=== PATIENT | male | born 1940 | race Caucasian/White ===

== ENCOUNTER 2018-08-04 15:09 | Inpatient (IN) | payer MEDICARE ==
[2018-08-04] MEDS ORDERED: Metoprolol Tartrate 5 MG/5 ML SDV IVPUSH ONE (15:18)
[2018-08-04] MEDS ORDERED: Metoprolol Tartrate 5 MG/5 ML SDV ONE (15:19)
--- NOTE | 2018-08-04 15:42 | EDM.PDOC ---
ED HPI GENERAL MEDICAL PROBLEM - General Stated Complaint: WEAKNESS/LETHARGY/HX OF HEART PROBLEMS Time Seen by Provider: 08/04/18 15:18 Source of Information: Reports: Patient, Other (2 friends of the patient) History Limitations: Reports: Altered Mental Status (Confused) - History of Present Illness INITIAL COMMENTS - FREE TEXT/NARRATIVE: A Code Blue was called for this patient after he developed nonsustained ventricular tachycardia on the monitor while his vitals were being checked. The patient a palpable pulse, even with the ventricular tachycardia. Minimal history is available. The patient states that he is confused, and is unable to provide much meaningful history. According to 2 of the patient's friends, who brought the patient to the ED, the patient is visiting from [place]. He complained of feeling tired and weak this morning. He was able to ascend approximately 10 steps to have breakfast, then went back downstairs to go lie down. He was then unable to get up and walk on his own, due to extreme weakness. There is no history of recent complaint of chest pain or dyspnea, fever, vomiting, or diarrhea. Reviewing the patient's medication list, the patient likely has hypertension, dyslipidemia, BPH, diabetes and osteoarthritis. According to the patient's friends, he wears nightly CPAP, suggesting obstructive sleep apnea. Further history was provided by the patient's , who was able to be contacted. The patient has a history of lacunar infarcts, for which he takes Coumadin. He also has a history of GERD, status post a Gabbie fundoplication. The patient has had several episodes of nonsustained ventricular tachycardia. I ordered that an IV be placed and that he receive 5 mg IV Lopressor STAT. - Related Data Allergies Allergy/AdvReac Type Severity Reaction Status Date / Time bee pollen Allergy Swelling Verified 08/04/18 17:18 Home Meds: Home Meds Cholecalciferol (Vitamin D3) [Vitamin D3] 5,000 intnl unit PO BEDTIME 08/04/18 [ History] Comprehensive Gut Health 1 tab PO MOTH 08/04/18 [History] Fish Oil/DHA/EPA [Fish Oil 1,200 MG] 1,200 mg PO BID 08/04/18 [History] Glucosamine HCl [Glucosamine] 1,500 mg PO DAILY 08/04/18 [History] Lisinopril/Hydrochlorothiazide [Lisinopril-Hctz 20-12.5 mg Tab] 12.5 - 20 mg PO DAILY 08/04/18 [History] Methylsulfonylmethane [MSM] 1,500 mg PO DAILY 08/04/18 [History] Multivits,Ca,Min/Iron/FA/Lycop [Centrum Men's Tablet] 1 tab PO BEDTIME 08/04/18 [History] Tamsulosin [Flomax] 0.4 mg PO DAILY 08/04/18 [History] Warfarin [Coumadin] 2.5 mg PO SUMOTUWEFRSA 08/04/18 [History] Warfarin [Coumadin] 5 mg PO TH 08/04/18 [History] amLODIPine Besylate [Amlodipine Besylate] 10 mg PO DAILY 08/04/18 [History] atorvaSTATin Calcium [Atorvastatin Calcium] 80 mg PO BEDTIME 08/04/18 [History] metFORMIN [Glucophage] 500 mg PO BID 08/04/18 [History] Past Medical History Cardiovascular History: Reports: High Cholesterol, Hypertension Respiratory History: Reports: Sleep Apnea (nightly CPAP) Gastrointestinal History: Reports: GERD Genitourinary History: Reports: BPH Musculoskeletal History: Reports: Osteoarthritis Neurological History: Reports: Other (See Below) (Lacunar infarcts) Endocrine/Metabolic History: Reports: Diabetes, Type II Hematologic History: Reports: Anticoagulation Therapy (coumadin) - Past Surgical History GI Surgical History: Reports: Gabbie Fundoplication ED ROS GENERAL - Review of Systems Review Of Systems: Unable To Obtain ED EXAM, GENERAL - Physical Exam Exam: See Below Exam Limited By: No Limitations General Appearance: WD/WN, No Apparent Distress Eye Exam: Bilateral Eye: EOMI, Normal Inspection Ears: Normal External Exam Nose: Normal Inspection Throat/Mouth: Normal Inspection, Normal Lips, Normal Voice, No Airway Compromise Head: Atraumatic, Normocephalic Neck: Normal Inspection Respiratory/Chest: No Respiratory Distress, Lungs Clear, Normal Breath Sounds, No Accessory Muscle Use Cardiovascular: Normal Peripheral Pulses, Regular Rate, Rhythm, No Edema, No Gallop, No JVD, No Murmur, No Rub, Other (Several episodes of nonsustained ventricular tachycardia - pulse WAS palpable during these episodes) Peripheral Pulses: 4+: Radial (L), Radial (R) GI/Abdominal: Normal Bowel Sounds, Soft, Non-Tender, No Organomegaly, No Distention, No Abnormal Bruit, No Mass, Other (Obese) (Male) Exam: Deferred Rectal (Males) Exam: Deferred Back Exam: Normal Inspection, Full Range of Motion, NT Extremities: Normal Inspection Neurological: No Motor/Sensory Deficits, Confused Skin Exam: Warm, Dry, Intact, Normal Color, No Rash EKG INTERPRETATION EKG Date: 08/04/18 Time: 15:22 Rhythm: NSR (with an episode of non-sustained ventricular tachycardia) Rate (Beats/Min): 102 Benezett: LAD-Left Benezett Deviation (2 LAFB) P-Wave: Present QRS: Normal ST-T: Normal Comparison: NA - No Prior EKG Course - Vital Signs Last Recorded V/S: Last Vital Signs Temp 37.6 C 08/04/18 18:00 Pulse 94 08/04/18 18:00 Resp 22 H 08/04/18 18:00 BP 74/51 L 08/04/18 18:00 Pulse Ox 89 L 08/04/18 18:00 - Orders/Labs/Meds Orders: Active Orders 24 hr Category Date Time Status Admission Status [Patient Status] [ADT] Routine ADT 08/04/18 19:46 Ordered EKG Documentation Completion [RC] STAT Care 08/04/18 15:23 Active Insert Briscoe Catheter [Insert Urinary Catheter] [OM.PC] Care 08/04/18 16:30 Ordered Stat Urinary Catheter Assessment [RC] ASDIRECTED Care 08/04/18 16:30 Active CULTURE BLOOD [BC] Stat Lab 08/04/18 15:43 Received CULTURE BLOOD [BC] Stat Lab 08/04/18 15:54 Received LACTIC ACID [CHEM] Timed Lab 08/04/18 19:50 Ordered Phenylephrine [Mayo-Synephrine] 10 mg Med 08/04/18 18:15 Active Sodium Chloride 0.9% [Normal Saline] 99 ml IV TITRATE Sodium Chloride 0.9% [Normal Saline] 1,000 ml Med 08/04/18 18:59 Active IV ONETIME Blood Culture x2 Reflex Set [OM.PC] Stat Oth 08/04/18 15:23 Ordered Medication Orders Phenylephrine HCl 10 mg/ (Sodium Chloride) 100 mls @ 60 mls/hr IV TITRATE HARRIETT; Protocol Sodium Chloride (Normal Saline) 1,000 mls @ 500 mls/hr IV ONETIME ONE Stop: 08/04/18 20:58 Labs: Laboratory Tests 05/01/1308/04/18 08/04/18 Range/Units 15:20 15:20 15:20 WBC 18.41 H (4.23-9.07) K/mm3 RBC 5.07 (4.63-6.08) M/mm3 Hgb 14.6 (13.7-17.5) gm/L Hct 44.8 (40.1-51.0) % MCV 88.4 (79.0-92.2) fl MCH 28.8 (25.7-32.2) pg MCHC 32.6 (32.2-35.5) g/dl RDW Std Deviation 44.8 H (35.1-43.9) fL Plt Count 185 (163-337) K/mm3 MPV 10.6 (9.4-12.3) fl Neutrophils % (Manual) 79 H (40-60) % Band Neutrophils % 4 (0-10) % Lymphocytes % (Manual) 6 L (20-40) % Atypical Lymphs % 4 % Monocytes % (Manual) 7 (2-10) % Eosinophils % (Manual) 0 L (0.8-7.0) % Basophils % (Manual) 0 L (0.2-1.2) Platelet Estimate Adequate Plt Morphology Comment See note RBC Morph Comment Normal PT 18.1 H (9.5-12.1) SECONDS INR 1.68 APTT 36 H (24-31) SECONDS D-Dimer, Quantitative 0.47 (0.19-0.50) mg/L Puncture Site ABG pH (7.35-7.45) ABG pCO2 (35.0-45.0) mmHg ABG pO2 (80.0-100.0) mmHg ABG HCO3 (22.0-26.0) meq/L ABG O2 Saturation (96.0-97.0) % ABG Base Excess (-2-2.0) Jair Test A-a Gradient mmHg O2 Delivery Device Oxygen Flow Rate Sodium 139 (136-145) mEq/L Potassium 3.4 L (3.5-5.1) mEq/L Chloride 102 (98-107) mEq/L Carbon Dioxide 26 (21-32) mEq/L Anion Gap 14.4 (5-15) BUN 17 (7-18) mg/dL Creatinine 1.4 H (0.7-1.3) mg/dL Est Cr Clr Drug Dosing TNP Estimated GFR (MDRD) 49 (>60) mL/min BUN/Creatinine Ratio 12.1 L (14-18) Glucose 191 H (83-115) mg/dL Lactic Acid (0.4-2.0) mmol/L Calcium 9.5 (8.5-10.1) mg/dL Magnesium 1.5 L (1.8-2.4) mg/dl Total Bilirubin 0.8 (0.2-1.0) mg/dL AST 14 L (15-37) U/L ALT 23 (16-63) U/L Alkaline Phosphatase 63 (46-116) U/L Troponin I 0.040 (0.00-0.056) ng/mL NT-Pro-B Natriuret Pep (0-450) pg/mL Total Protein 7.7 (6.4-8.2) g/dl Albumin 3.2 L (3.4-5.0) g/dl Globulin 4.5 gm/dL Albumin/Globulin Ratio 0.7 L (1-2) Urine Color (Yellow) Urine Appearance (Clear) Urine pH (5.0-8.0) Ur Specific Anderson (1.005-1.030) Urine Protein (Negative) Urine Glucose (UA) (Negative) Urine Ketones (Negative) Urine Occult Blood (Negative) Urine Nitrite (Negative) Urine Bilirubin (Negative) Urine Urobilinogen (0.2-1.0) Ur Leukocyte Esterase (Negative) Urine RBC (0-5) /hpf Urine WBC (0-5) /hpf Ur Epithelial Cells (0-5) /hpf Urine Bacteria (FEW) /hpf Urine Mucus (FEW) /hpf 08/04/18 08/04/18 08/04/18 Range/Units 15:20 15:35 15:54 WBC (4.23-9.07) K/mm3 RBC (4.63-6.08) M/mm3 Hgb (13.7-17.5) gm/L Hct (40.1-51.0) % MCV (79.0-92.2) fl MCH (25.7-32.2) pg MCHC (32.2-35.5) g/dl RDW Std Deviation (35.1-43.9) fL Plt Count (163-337) K/mm3 MPV (9.4-12.3) fl Neutrophils % (Manual) (40-60) % Band Neutrophils % (0-10) % Lymphocytes % (Manual) (20-40) % Atypical Lymphs % % Monocytes % (Manual) (2-10) % Eosinophils % (Manual) (0.8-7.0) % Basophils % (Manual) (0.2-1.2) Platelet Estimate Plt Morphology Comment RBC Morph Comment PT (9.5-12.1) SECONDS INR APTT (24-31) SECONDS D-Dimer, Quantitative (0.19-0.50) mg/L Puncture Site Lt radial ABG pH 7.45 (7.35-7.45) ABG pCO2 35.1 (35.0-45.0) mmHg ABG pO2 63.0 L (80.0-100.0) mmHg ABG HCO3 24.3 (22.0-26.0) meq/L ABG O2 Saturation 94.2 L (96.0-97.0) % ABG Base Excess 1.2 (-2-2.0) Jair Test Positive A-a Gradient 175 mmHg O2 Delivery Device Nasal cannula Oxygen Flow Rate 6.0 Sodium (136-145) mEq/L Potassium (3.5-5.1) mEq/L Chloride (98-107) mEq/L Carbon Dioxide (21-32) mEq/L Anion Gap (5-15) BUN (7-18) mg/dL Creatinine (0.7-1.3) mg/dL Est Cr Clr Drug Dosing Estimated GFR (MDRD) (>60) mL/min BUN/Creatinine Ratio (14-18) Glucose (83-115) mg/dL Lactic Acid 2.0 (0.4-2.0) mmol/L Calcium (8.5-10.1) mg/dL Magnesium (1.8-2.4) mg/dl Total Bilirubin (0.2-1.0) mg/dL AST (15-37) U/L ALT (16-63) U/L Alkaline Phosphatase (46-116) U/L Troponin I (0.00-0.056) ng/mL NT-Pro-B Natriuret Pep 354 (0-450) pg/mL Total Protein (6.4-8.2) g/dl Albumin (3.4-5.0) g/dl Globulin gm/dL Albumin/Globulin Ratio (1-2) Urine Color (Yellow) Urine Appearance (Clear) Urine pH (5.0-8.0) Ur Specific Anderson (1.005-1.030) Urine Protein (Negative) Urine Glucose (UA) (Negative) Urine Ketones (Negative) Urine Occult Blood (Negative) Urine Nitrite (Negative) Urine Bilirubin (Negative) Urine Urobilinogen (0.2-1.0) Ur Leukocyte Esterase (Negative) Urine RBC (0-5) /hpf Urine WBC (0-5) /hpf Ur Epithelial Cells (0-5) /hpf Urine Bacteria (FEW) /hpf Urine Mucus (FEW) /hpf 08/04/18 08/04/18 Range/Units 16:35 18:12 WBC (4.23-9.07) K/mm3 RBC (4.63-6.08) M/mm3 Hgb (13.7-17.5) gm/L Hct (40.1-51.0) % MCV (79.0-92.2) fl MCH (25.7-32.2) pg MCHC (32.2-35.5) g/dl RDW Std Deviation (35.1-43.9) fL Plt Count (163-337) K/mm3 MPV (9.4-12.3) fl Neutrophils % (Manual) (40-60) % Band Neutrophils % (0-10) % Lymphocytes % (Manual) (20-40) % Atypical Lymphs % % Monocytes % (Manual) (2-10) % Eosinophils % (Manual) (0.8-7.0) % Basophils % (Manual) (0.2-1.2) Platelet Estimate Plt Morphology Comment RBC Morph Comment PT (9.5-12.1) SECONDS INR APTT (24-31) SECONDS D-Dimer, Quantitative (0.19-0.50) mg/L Puncture Site ABG pH (7.35-7.45) ABG pCO2 (35.0-45.0) mmHg ABG pO2 (80.0-100.0) mmHg ABG HCO3 (22.0-26.0) meq/L ABG O2 Saturation (96.0-97.0) % ABG Base Excess (-2-2.0) Jair Test A-a Gradient mmHg O2 Delivery Device Oxygen Flow Rate Sodium (136-145) mEq/L Potassium (3.5-5.1) mEq/L Chloride (98-107) mEq/L Carbon Dioxide (21-32) mEq/L Anion Gap (5-15) BUN (7-18) mg/dL Creatinine (0.7-1.3) mg/dL Est Cr Clr Drug Dosing Estimated GFR (MDRD) (>60) mL/min BUN/Creatinine Ratio (14-18) Glucose (83-115) mg/dL Lactic Acid (0.4-2.0) mmol/L Calcium (8.5-10.1) mg/dL Magnesium (1.8-2.4) mg/dl Total Bilirubin (0.2-1.0) mg/dL AST (15-37) U/L ALT (16-63) U/L Alkaline Phosphatase (46-116) U/L Troponin I 0.041 (0.00-0.056) ng/mL NT-Pro-B Natriuret Pep (0-450) pg/mL Total Protein (6.4-8.2) g/dl Albumin (3.4-5.0) g/dl Globulin gm/dL Albumin/Globulin Ratio (1-2) Urine Color Yellow (Yellow) Urine Appearance Clear (Clear) Urine pH 5.5 (5.0-8.0) Ur Specific Anderson 1.025 (1.005-1.030) Urine Protein 1+ H (Negative) Urine Glucose (UA) Negative (Negative) Urine Ketones Negative (Negative) Urine Occult Blood Negative (Negative) Urine Nitrite Negative (Negative) Urine Bilirubin Negative (Negative) Urine Urobilinogen 0.2 (0.2-1.0) Ur Leukocyte Esterase Negative (Negative) Urine RBC 0-5 (0-5) /hpf Urine WBC 0-5 (0-5) /hpf Ur Epithelial Cells 0-5 (0-5) /hpf Urine Bacteria Few (FEW) /hpf Urine Mucus Not seen (FEW) /hpf Meds: Medications Generic Name Dose Route Start Last Admin Trade Name Freq PRN Reason Stop Dose Admin Phenylephrine HCl 10 mg/ 100 mls @ 60 mls/hr 08/04/18 18:15 Sodium Chloride IV TITRATE HARRIETT Protocol 100 MCG/MIN Sodium Chloride 1,000 mls @ 500 mls/hr 08/04/18 18:59 Normal Saline IV 08/04/18 20:58 ONETIME ONE Discontinued Medications Generic Name Dose Route Start Last Admin Trade Name Nilo PRN Reason Stop Dose Admin Magnesium Sulfate 2 gm/ Premix 50 mls @ 50 mls/hr 08/04/18 16:33 08/04/18 17: 18 IV 08/04/18 17:32 50 mls/hr ONETIME ONE Administration Azithromycin 500 mg/ Sodium 250 mls @ 250 mls/hr 08/04/18 16:33 08/04/18 17: 53 Chloride IV 08/04/18 17:32 250 mls/hr ONETIME ONE Administration Ceftriaxone Sodium 2 gm/ 100 mls @ 200 mls/hr 08/04/18 17:11 08/04/18 17:19 Sodium Chloride IV 08/04/18 17:40 200 mls/hr ONETIME STA Administration Sodium Chloride 1,000 mls @ 999 mls/hr 08/04/18 17:21 08/04/18 17:30 Normal Saline IV 08/04/18 18:21 999 mls/hr ONETIME ONE Administration Norepinephrine Bitartrate 4 mg 250 mls @ 37.5 mls/hr 08/04/18 18:15 / Dextrose/Water IV TITRATE HARRIETT Protocol 10 MCG/MIN Metoprolol Tartrate 5 mg 08/04/18 15:18 08/04/18 15:20 Lopressor IVPUSH 08/04/18 15:19 5 mg ONETIME ONE Administration Metoprolol Tartrate Confirm 08/04/18 15:19 08/04/18 15:33 Lopressor Administered 08/04/18 15:20 Not Given Dose 5 mg .ROUTE .[facility] ONE - Re-Assessments/Exams Free Text/Narrative Re-Assessment/Exam: 08/04/18 15:46 An initial ECG, obtained at 15:22:17, demonstrated a sinus tachycardia that I estimate to be just over 100 bpm, that developed ventricular tachycardia. No AV blocks were seen. No atrial enlargement. There were no ischemic changes. Because of the ventricular tachycardia, transition was unable to be determined. There was left axis deviation, likely secondary to a left anterior fascicular block. No LVH or RVH. No interventricular conduction delays. The QTc was measured at 562 ms, however, this included the ventricular tachycardia. A repeat ECG, obtained at 15:22:47, demonstrated a normal sinus rhythm with no ischemic changes. Normal transition. There was left axis deviation, likely secondary to a left anterior fascicular block, but no LVH or RVH. No interventricular conduction delays, and the QTc was within normal limits. The patient's ABG, obtained while receiving 6L O2 per NC, represents very mild acute respiratory alkalosis with hypoxemia. 08/04/18 16:30 Portable chest radiograph reviewed. The cardiac silhouette is within normal limits. No pulmonary vascular congestion. No pleural effusions seen on this AP view. Atelectasis versus small infiltrate noted at the right base. No pneumothorax. Hiatal hernia incidentally noted. Formal read per the Radiologist pending. 08/04/18 16:34 Following 5 mg IV Lopressor, the patient has had a few PVCs, but no more episodes of V-tach. The patient's WBC count has returned elevated at 18.41 with 4% bandemia. With the possible infiltrate at the right base, I believe it would be prudent to treat the patient for pneumonia. I have therefore ordered 2 g of IV Rocephin and 500 mg of IV azithromycin. Blood cultures were obtained earlier. The patient's magnesium level has returned significantly depressed at 1.5. I have ordered a 2 g Mg-rider. 08/04/18 17:18 Notified by Priscilla KIM that the bladder scan revealed 300 mL of retained urine. A catheter was placed, draining 400 mL, with a blood clot at the end. The urinalysis appears to be clean. The patient's CMP is remarkable for a creatinine mildly elevated at 1.4 and a blood glucose modestly elevated at 191. The remainder of the CMP is unremarkable. The patient's troponin is within normal limits. The patient's D-dimer is within normal limits, however, his INR is subtherapeutic at 1.68. The patient's BNP is not significantly elevated. The patient's influenza swab returned negative. The patient's blood pressure has dropped as low as the 80s, although is currently 91/48 with a HR of 93. I will treat with IV fluid. I am recommending admission to the hospital. 08/04/18 17:[address] Vargas at 17:36. He has tentatively accepted the patient for admission, however, would like us to check a second troponin before agreeing. 08/04/18 18:04 The patient has received approximately 750 mL of the 1 L NS bolus, but his blood pressure has dropped to 74/51. While the patient's lactic acid level was at the upper limits of normal at 2.0, he is behaving as if he is septic. I have ordered a phenylephrine drip, to start at 10 g/min. I believe the patient would benefit from a central line. I will attempt to contact his for consent. 08/04/18 18:14 Case discussed with the patient's over the phone at 18:05. Numerous questions were answered. She agreed to my placing a central line. She stated that she will attempt to drive here, but she estimates it will take her 2 days, arriving 08/06/2018. In the meantime, the patient's BP has increased to 114/66, with a HR of 89, and his oxygen saturation is 95% on 6 L O2 per NC. The phenylephrine drip has not been started. 08/04/18 18:52 The patient's repeat troponin has remained unchanged at 0.041. His blood pressure remains at 115/71, with a HR of 86, without being on a pressor. His oxygen saturation has remained stable at 94%, while on 6 L O2 per NC. 08/04/18 19:[address] Vargas here in the ED. Dr. Vargas accepted the patient for admission to the ICU. We will get a second liter of NS started at 500 ml/hr. I have also added a second lactic acid level, to be obtained at 19: 50. Departure - Departure Time of Disposition: 19:15 Disposition: Admitted As Inpatient 66 Condition: Serious Clinical Impression: Nonsustained ventricular tachycardia, Leukocytosis, Hyperglycemia due to type 2 diabetes mellitus, Subtherapeutic international normalized ratio (INR), Hypomagnesemia, Urinary retention, Pneumonia, Sepsis Referrals: PCP,Not In Area [Primary Care Provider] - - My Orders Last 24 Hours: My Active Orders 08/04/18 15:23 EKG Documentation Completion [RC] STAT Blood Culture x2 Reflex Set [OM.PC] Stat 08/04/18 15:43 CULTURE BLOOD [BC] Stat 08/04/18 15:54 CULTURE BLOOD [BC] Stat 08/04/18 16:30 Insert Briscoe Catheter [Insert Urinary Catheter] [OM.PC] Stat Urinary Catheter Assessment [RC] ASDIRECTED 08/04/18 18:15 Phenylephrine [Mayo-Synephrine] 10 mg Sodium Chloride 0.9% [Normal Saline] 99 ml IV TITRATE 08/04/18 18:59 Sodium Chloride 0.9% [Normal Saline] 1,000 ml IV ONETIME 08/04/18 19:46 Admission Status [Patient Status] [ADT] Routine 08/04/18 19:50 LACTIC ACID [CHEM] Timed - Assessment/Plan Last 24 Hours: My Active Orders 08/04/18 15:23 EKG Documentation Completion [RC] STAT Blood Culture x2 Reflex Set [OM.PC] Stat 08/04/18 15:43 CULTURE BLOOD [BC] Stat 08/04/18 15:54 CULTURE BLOOD [BC] Stat 08/04/18 16:30 Insert Briscoe Catheter [Insert Urinary Catheter] [OM.PC] Stat Urinary Catheter Assessment [RC] ASDIRECTED 08/04/18 18:15 Phenylephrine [Mayo-Synephrine] 10 mg Sodium Chloride 0.9% [Normal Saline] 99 ml IV TITRATE 08/04/18 18:59 Sodium Chloride 0.9% [Normal Saline] 1,000 ml IV ONETIME 08/04/18 19:46 Admission Status [Patient Status] [ADT] Routine 08/04/18 19:50 LACTIC ACID [CHEM] Timed
--- NOTE | 2018-08-04 16:13 | CR ---
Chest: Portable view of the chest was obtained. Comparison: No prior chest x-ray. Mild bibasilar atelectasis is seen. Lungs otherwise are clear. Heart size is normal. Tortuous thoracic aorta is seen. Impression: 1. Mild bibasilar atelectasis. 2. Nothing acute is otherwise seen on portable chest x-ray. Diagnostic code #2
[2018-08-04] MEDS ORDERED: Magnesium Sulfate/Water 2 GM in Premix Bag 1 BAG IV ONE (16:33)
[2018-08-04] MEDS ORDERED: cefTRIAXone 2 GM Vial IV ONE (16:33)
[2018-08-04] MEDS ORDERED: Azithromycin 500 MG in Sodium Chloride 0.9% 250 ML IV ONE (16:33)
[2018-08-04] MEDS ORDERED: cefTRIAXone 2 GM in Sodium Chloride 0.9% 100 ML IV STA (17:11)
[2018-08-04] MEDS ORDERED: Sodium Chloride 0.9% 1,000 ML IV ONE ×2 (17:21→18:59)
[2018-08-04] MEDS ORDERED: Phenylephrine 10 MG in Sodium Chloride 0.9% 99 ML IV SCH (18:15)
[2018-08-04] MEDS ORDERED: Norepinephrine 4 MG in Dextrose 5% in Water 246 ML IV SCH ×2 (18:15)
[2018-08-04] MEDS ORDERED: Albuterol/Ipratropium 3.0-0.5 MG/3 ML Neb Soln NEB PRN (20:56)
[2018-08-04] MEDS ORDERED: Albuterol 0.083% 2.5 MG/3 ML Neb Soln NEB PRN (20:56)
[2018-08-04] MEDS ORDERED: Ondansetron 4 MG/2 ML SDV IV PRN (20:56)
[2018-08-04] MEDS ORDERED: Ondansetron 4 MG Tab.DIS PO PRN (20:56)
[2018-08-04] MEDS ORDERED: Bisacodyl 5 MG Tab PO PRN (20:56)
[2018-08-04] MEDS: Sodium Chloride 0.9% 1,000 ML IV SCH (21:00)
--- NOTE | 2018-08-04 21:13 | PCM.HP ---
H&P History of Present Illness - General Date of Service: 08/04/18 Admit Problem/Dx: Admission Diagnosis/Problem Admission Diagnosis/Problem Sepsis Source of Information: Patient, Provider - History of Present Illness Initial Comments - Free Text/Narative: 77 or on male was brought to the emergency room by a couple of friends because over the last 24 hours became weaker. He is having difficulty even walking down to the basement. When he initially presented to the emergency room a CODE BLUE was called because of a nonsustained ventricular tachycardia on the monitor. Patient had a palpable pulse in with ventricular tachycardia. Patient was given Lopressor 5 mg IV. This did result his ventricular tachycardia. Patient is a poor historian and although his was on the phone wall I interviewed him she was not there over the last 2 days. His friends that were with him were not available to be questioned. Patient is visiting from [place] and became progressively more tired and weak. He was unable to get up and walk on his own today due to extreme weakness. There's been no chest pain, dyspnea, fever, vomiting, hematochezia, melena. He does have chronic diarrhea for the last 20 years. Patient is on metformin for his diabetes. Patient has a history of multiple small CVAs. He was apparently placed on warfarin for this indication. Past medical history includes hypertension, hyperlipidemia, diabetes, sleep apnea in which he uses a CPAP, BPH, GERD, and osteoarthritis. Past surgical history is significant for Gabbie fundoplication An emergency room patient was found to have a white count of 18,000 with 4% bandemia. Chest x-ray was suggestive of a right lower lobe infiltrate. Patient had a fever of 101.7 so he was given 2 g Rocephin and 500 mg of IV azithromycin. They obtained blood cultures prior to antibiotics. He was given 1 L normal saline bolus and transferred to the floor at 500 mL per hour. He did have 400 mL of urine on catheter. Lactic acid initially was 2.0 and went down to 1.7. Troponin was negative 2. Now in the ICU blood pressure is up. 131 systolic. Oxygen levels are maintained around 90-91% on 6 L O2 per nasal cannula. He is talking in full sentences without difficulty but coughing frequently. - Related Data Allergies/Adverse Reactions: Allergies Allergy/AdvReac Type Severity Reaction Status Date / Time bee pollen Allergy Swelling Verified 08/04/18 17:18 Home Medications: Home Meds Cholecalciferol (Vitamin D3) [Vitamin D3] 5,000 intnl unit PO BEDTIME 08/04/18 [ History] Comprehensive Gut Health 1 tab PO MOTH 08/04/18 [History] Fish Oil/DHA/EPA [Fish Oil 1,200 MG] 1,200 mg PO BID 08/04/18 [History] Glucosamine HCl [Glucosamine] 1,500 mg PO DAILY 08/04/18 [History] Lisinopril/Hydrochlorothiazide [Lisinopril-Hctz 20-12.5 mg Tab] 12.5 - 20 mg PO DAILY 08/04/18 [History] Methylsulfonylmethane [MSM] 1,500 mg PO DAILY 08/04/18 [History] Multivits,Ca,Min/Iron/FA/Lycop [Centrum Men's Tablet] 1 tab PO BEDTIME 08/04/18 [History] Tamsulosin [Flomax] 0.4 mg PO DAILY 08/04/18 [History] Warfarin [Coumadin] 2.5 mg PO SUMOTUWEFRSA 08/04/18 [History] Warfarin [Coumadin] 5 mg PO TH 08/04/18 [History] amLODIPine Besylate [Amlodipine Besylate] 10 mg PO DAILY 08/04/18 [History] atorvaSTATin Calcium [Atorvastatin Calcium] 80 mg PO BEDTIME 08/04/18 [History] metFORMIN [Glucophage] 500 mg PO BID 08/04/18 [History] Past Medical History Cardiovascular History: Reports: High Cholesterol, Hypertension Respiratory History: Reports: Sleep Apnea Gastrointestinal History: Reports: GERD Genitourinary History: Reports: BPH Musculoskeletal History: Reports: Osteoarthritis Neurological History: Reports: CVA, TIA, Other (See Below) Other Neuro History: mini stroke per Endocrine/Metabolic History: Reports: Diabetes, Type II Hematologic History: Reports: Anticoagulation Therapy - Past Surgical History GI Surgical History: Reports: Gabbie Fundoplication Social & Family History - Tobacco Use Smoking Status *Q: Former Smoker Used Tobacco, but Quit: Yes Month/Year Tobacco Last Used: 2013 - Caffeine Use Caffeine Use: Reports: Coffee - Recreational Drug Use Recreational Drug Use: No H&P Review of Systems - Review of Systems: Review Of Systems: ROS reveals no pertinent complaints other than HPI. Genitourinary: Reports: Retention. Denies: Dysuria, Frequency, Urgency Exam - Exam Exam: See Below - Vital Signs Vital Signs: Last Vital Signs Temp 99.3 F 08/04/18 20:00 Pulse 100 08/04/18 20:00 Resp 23 H 08/04/18 20:00 BP 131/70 08/04/18 20:00 Pulse Ox 92 L 08/04/18 20:00 Weight: 238 lb 4.8 oz - Exam Quality Assessment: Supplemental Oxygen General: Alert, Oriented HEENT: Conjunctiva Clear, Mucosa Moist & [place], Posterior Pharynx Clear Neck: Supple, Trachea Midline Lungs: Rales, Other (Mild increase her citrate effort with bilateral rales right worse than left.) Cardiovascular: Regular Rate, Regular Rhythm, Other (Heart sounds are distant secondary to habitus) GI/Abdominal Exam: Normal Bowel Sounds, Soft, Non-Tender, No Organomegaly, No Distention Extremities: Normal Inspection, Normal Range of Motion, Non-Tender, Normal Capillary Refill, Pedal Edema (1+ bilateral pitting edema) Skin: Warm, Dry, Intact Neuro Extensive - Mental Status: Alert, Normal Mood/Affect, Disorientation to Time. No: Memory Intact, Disorientation to Person, Disorientation to Place Neuro Extensive - Motor, Sensory, Reflexes: CN II-XII Intact Psychiatric: Alert, Normal Affect, Normal Mood - Patient Data Lab Results Last 24 hrs: Laboratory Results - last 24 hr 08/04/18 08/04/18 08/04/18 Range/Units 15:20 15:20 15:20 WBC 18.41 H (4.23-9.07) K/mm3 RBC 5.07 (4.63-6.08) M/mm3 Hgb 14.6 (13.7-17.5) gm/L Hct 44.8 (40.1-51.0) % MCV 88.4 (79.0-92.2) fl MCH 28.8 (25.7-32.2) pg MCHC 32.6 (32.2-35.5) g/dl RDW Std Deviation 44.8 H (35.1-43.9) fL Plt Count 185 (163-337) K/mm3 MPV 10.6 (9.4-12.3) fl Neutrophils % (Manual) 79 H (40-60) % Band Neutrophils % 4 (0-10) % Lymphocytes % (Manual) 6 L (20-40) % Atypical Lymphs % 4 % Monocytes % (Manual) 7 (2-10) % Eosinophils % (Manual) 0 L (0.8-7.0) % Basophils % (Manual) 0 L (0.2-1.2) Platelet Estimate Adequate Plt Morphology Comment See note RBC Morph Comment Normal PT 18.1 H (9.5-12.1) SECONDS INR 1.68 APTT 36 H (24-31) SECONDS D-Dimer, Quantitative 0.47 (0.19-0.50) mg/L Puncture Site ABG pH (7.35-7.45) ABG pCO2 (35.0-45.0) mmHg ABG pO2 (80.0-100.0) mmHg ABG HCO3 (22.0-26.0) meq/L ABG O2 Saturation (96.0-97.0) % ABG Base Excess (-2-2.0) Jair Test A-a Gradient mmHg O2 Delivery Device Oxygen Flow Rate Sodium 139 (136-145) mEq/L Potassium 3.4 L (3.5-5.1) mEq/L Chloride 102 (98-107) mEq/L Carbon Dioxide 26 (21-32) mEq/L Anion Gap 14.4 (5-15) BUN 17 (7-18) mg/dL Creatinine 1.4 H (0.7-1.3) mg/dL Est Cr Clr Drug Dosing TNP Estimated GFR (MDRD) 49 (>60) mL/min BUN/Creatinine Ratio 12.1 L (14-18) Glucose 191 H (83-115) mg/dL Lactic Acid (0.4-2.0) mmol/L Calcium 9.5 (8.5-10.1) mg/dL Magnesium 1.5 L (1.8-2.4) mg/dl Total Bilirubin 0.8 (0.2-1.0) mg/dL AST 14 L (15-37) U/L ALT 23 (16-63) U/L Alkaline Phosphatase 63 (46-116) U/L Troponin I 0.040 (0.00-0.056) ng/mL NT-Pro-B Natriuret Pep (0-450) pg/mL Total Protein 7.7 (6.4-8.2) g/dl Albumin 3.2 L (3.4-5.0) g/dl Globulin 4.5 gm/dL Albumin/Globulin Ratio 0.7 L (1-2) Urine Color (Yellow) Urine Appearance (Clear) Urine pH (5.0-8.0) Ur Specific Rubicon (1.005-1.030) Urine Protein (Negative) Urine Glucose (UA) (Negative) Urine Ketones (Negative) Urine Occult Blood (Negative) Urine Nitrite (Negative) Urine Bilirubin (Negative) Urine Urobilinogen (0.2-1.0) Ur Leukocyte Esterase (Negative) Urine RBC (0-5) /hpf Urine WBC (0-5) /hpf Ur Epithelial Cells (0-5) /hpf Urine Bacteria (FEW) /hpf Urine Mucus (FEW) /hpf 08/04/18 08/04/18 08/04/18 Range/Units 15:20 15:35 15:54 WBC (4.23-9.07) K/mm3 RBC (4.63-6.08) M/mm3 Hgb (13.7-17.5) gm/L Hct (40.1-51.0) % MCV (79.0-92.2) fl MCH (25.7-32.2) pg MCHC (32.2-35.5) g/dl RDW Std Deviation (35.1-43.9) fL Plt Count (163-337) K/mm3 MPV (9.4-12.3) fl Neutrophils % (Manual) (40-60) % Band Neutrophils % (0-10) % Lymphocytes % (Manual) (20-40) % Atypical Lymphs % % Monocytes % (Manual) (2-10) % Eosinophils % (Manual) (0.8-7.0) % Basophils % (Manual) (0.2-1.2) Platelet Estimate Plt Morphology Comment RBC Morph Comment PT (9.5-12.1) SECONDS INR APTT (24-31) SECONDS D-Dimer, Quantitative (0.19-0.50) mg/L Puncture Site Lt radial ABG pH 7.45 (7.35-7.45) ABG pCO2 35.1 (35.0-45.0) mmHg ABG pO2 63.0 L (80.0-100.0) mmHg ABG HCO3 24.3 (22.0-26.0) meq/L ABG O2 Saturation 94.2 L (96.0-97.0) % ABG Base Excess 1.2 (-2-2.0) Jair Test Positive A-a Gradient 175 mmHg O2 Delivery Device Nasal cannula Oxygen Flow Rate 6.0 Sodium (136-145) mEq/L Potassium (3.5-5.1) mEq/L Chloride (98-107) mEq/L Carbon Dioxide (21-32) mEq/L Anion Gap (5-15) BUN (7-18) mg/dL Creatinine (0.7-1.3) mg/dL Est Cr Clr Drug Dosing Estimated GFR (MDRD) (>60) mL/min BUN/Creatinine Ratio (14-18) Glucose (83-115) mg/dL Lactic Acid 2.0 (0.4-2.0) mmol/L Calcium (8.5-10.1) mg/dL Magnesium (1.8-2.4) mg/dl Total Bilirubin (0.2-1.0) mg/dL AST (15-37) U/L ALT (16-63) U/L Alkaline Phosphatase (46-116) U/L Troponin I (0.00-0.056) ng/mL NT-Pro-B Natriuret Pep 354 (0-450) pg/mL Total Protein (6.4-8.2) g/dl Albumin (3.4-5.0) g/dl Globulin gm/dL Albumin/Globulin Ratio (1-2) Urine Color (Yellow) Urine Appearance (Clear) Urine pH (5.0-8.0) Ur Specific Rubicon (1.005-1.030) Urine Protein (Negative) Urine Glucose (UA) (Negative) Urine Ketones (Negative) Urine Occult Blood (Negative) Urine Nitrite (Negative) Urine Bilirubin (Negative) Urine Urobilinogen (0.2-1.0) Ur Leukocyte Esterase (Negative) Urine RBC (0-5) /hpf Urine WBC (0-5) /hpf Ur Epithelial Cells (0-5) /hpf Urine Bacteria (FEW) /hpf Urine Mucus (FEW) /hpf 08/04/18 08/04/18 08/04/18 Range/Units 16:35 18:12 19:40 WBC (4.23-9.07) K/mm3 RBC (4.63-6.08) M/mm3 Hgb (13.7-17.5) gm/L Hct (40.1-51.0) % MCV (79.0-92.2) fl MCH (25.7-32.2) pg MCHC (32.2-35.5) g/dl RDW Std Deviation (35.1-43.9) fL Plt Count (163-337) K/mm3 MPV (9.4-12.3) fl Neutrophils % (Manual) (40-60) % Band Neutrophils % (0-10) % Lymphocytes % (Manual) (20-40) % Atypical Lymphs % % Monocytes % (Manual) (2-10) % Eosinophils % (Manual) (0.8-7.0) % Basophils % (Manual) (0.2-1.2) Platelet Estimate Plt Morphology Comment RBC Morph Comment PT (9.5-12.1) SECONDS INR APTT (24-31) SECONDS D-Dimer, Quantitative (0.19-0.50) mg/L Puncture Site ABG pH (7.35-7.45) ABG pCO2 (35.0-45.0) mmHg ABG pO2 (80.0-100.0) mmHg ABG HCO3 (22.0-26.0) meq/L ABG O2 Saturation (96.0-97.0) % ABG Base Excess (-2-2.0) Jair Test A-a Gradient mmHg O2 Delivery Device Oxygen Flow Rate Sodium (136-145) mEq/L Potassium (3.5-5.1) mEq/L Chloride (98-107) mEq/L Carbon Dioxide (21-32) mEq/L Anion Gap (5-15) BUN (7-18) mg/dL Creatinine (0.7-1.3) mg/dL Est Cr Clr Drug Dosing Estimated GFR (MDRD) (>60) mL/min BUN/Creatinine Ratio (14-18) Glucose (83-115) mg/dL Lactic Acid 1.7 (0.4-2.0) mmol/L Calcium (8.5-10.1) mg/dL Magnesium (1.8-2.4) mg/dl Total Bilirubin (0.2-1.0) mg/dL AST (15-37) U/L ALT (16-63) U/L Alkaline Phosphatase (46-116) U/L Troponin I 0.041 (0.00-0.056) ng/mL NT-Pro-B Natriuret Pep (0-450) pg/mL Total Protein (6.4-8.2) g/dl Albumin (3.4-5.0) g/dl Globulin gm/dL Albumin/Globulin Ratio (1-2) Urine Color Yellow (Yellow) Urine Appearance Clear (Clear) Urine pH 5.5 (5.0-8.0) Ur Specific [place]icon 1.025 (1.005-1.030) Urine Protein 1+ H (Negative) Urine Glucose (UA) Negative (Negative) Urine Ketones Negative (Negative) Urine Occult Blood Negative (Negative) Urine Nitrite Negative (Negative) Urine Bilirubin Negative (Negative) Urine Urobilinogen 0.2 (0.2-1.0) Ur Leukocyte Esterase Negative (Negative) Urine RBC 0-5 (0-5) /hpf Urine WBC 0-5 (0-5) /hpf Ur Epithelial Cells 0-5 (0-5) /hpf Urine Bacteria Few (FEW) /hpf Urine Mucus Not seen (FEW) /hpf Result Diagrams: 08/04/18 15:20 08/04/18 15:20 Néstor Results Last 24 hrs: Microbiology 08/04/18 15:40 Influenza Type A Antigen Screen - Final Nasopharyngeal Swab NEGATIVE INFLUENZA A VIRUS AG REFERENCE RANGE: NEGATIVE Influenza Type B Antigen Screen - Final NEGATIVE INFLUENZA B VIRUS AG REFERENCE RANGE: NEGATIVE EKG INTERPRETATION EKG Interpretation Comments: ECG in the emergency room demonstrated a central tachycardia with no AV blocks. Left axis deviation with possible left anterior fascicular block. No LVH or RVH. QTC was 562 ms, however this included the ventricular tachycardia Repeat ECG demonstrated normal sinus rhythm with no ischemic changes and normal transition. There is left axis deviation with left anterior fascicular block, but no LVH or RVH. QTC was normal. - Problem List (1) Respiratory failure with hypoxia SNOMED Code(s): 03030351463161748 ICD Code: J96.91 - RESPIRATORY FAILURE, UNSPECIFIED WITH HYPOXIA Status: Acute Current Visit: Yes (2) Pneumonia SNOMED Code(s): 574134723 ICD Code: J18.9 - PNEUMONIA, UNSPECIFIED ORGANISM Status: Acute Current Visit: Yes (3) Sepsis SNOMED Code(s): 48501540 ICD Code: A41.9 - SEPSIS, UNSPECIFIED ORGANISM Status: Acute Current Visit: Yes (4) Urinary retention SNOMED Code(s): 520148131 ICD Code: R33.9 - RETENTION OF URINE, UNSPECIFIED Status: Acute Current Visit: Yes Problem List Initiated/Reviewed/Updated: Yes Orders Last 24hrs: Active Orders 24 hr Category Date Time Status Admission Status [Patient Status] [ADT] Routine ADT 08/04/18 19:46 Active Ambulate [RC] ASDIRECTED Care 08/04/18 20:56 Ordered Antiembolic Devices [RC] PER UNIT ROUTINE Care 08/04/18 20:59 Ordered BIPAP Adult [RT BiPAP/CPAP] [RC] ASDIRECTED Care 08/04/18 21:05 Ordered Blood Glucose Check, Bedside [RC] WITHMEALSANDBED Care 08/04/18 20:56 Ordered Height and Weight [RC] DAILY Care 08/04/18 20:56 Ordered Insert [place] Catheter [Insert Urinary Catheter] [OM.PC] Care 08/04/18 16:30 Ordered Stat Oxygen Therapy [RC] PRN Care 08/04/18 20:56 Ordered RT Aerosol Therapy [RC] ASDIRECTED Care 08/04/18 20:59 Ordered Up ad [place] [RC] ASDIRECTED Care 08/04/18 20:56 Ordered Urinary Catheter Assessment [RC] ASDIRECTED Care 08/04/18 16:30 Active VTE/DVT Education [RC] PER UNIT ROUTINE Care 08/04/18 20:56 Ordered Vital Signs [RC] Q4H Care 08/04/18 20:56 Ordered Consult to Diabetic Nurse Specialist [CONS] Routine Cons 08/04/18 20:56 Ordered Respiratory Care Assess and Treatment [CONS] Routine Cons 08/04/18 20:56 Ordered Consistent Carbohydrate Diet [DIET] Diet 08/05/18 Breakfast Active Chest 1V Frontal [CR] AM Exams 08/05/18 05:11 Ordered BLOOD GAS ARTERIAL [BG] Timed Lab 08/05/18 06:00 Ordered C-REACTIVE PROTEIN [CHEM] AM Lab 08/05/18 05:11 Ordered CBC WITH AUTO DIFF [HEME] AM Lab 08/05/18 05:11 Ordered COMPREHENSIVE METABOLIC PN,CMP [CHEM] AM Lab 08/05/18 05:11 Ordered CULTURE BLOOD [BC] Stat Lab 08/04/18 15:43 Received CULTURE BLOOD [BC] Stat Lab 08/04/18 15:54 Received INR,PT,PROTHROMBIN TIME [COAG] AM Lab 08/05/18 05:11 Ordered INR,PT,PROTHROMBIN TIME [COAG] AM Lab 08/06/18 05:11 Ordered INR,PT,PROTHROMBIN TIME [COAG] AM Lab 08/07/18 05:11 Ordered INR,PT,PROTHROMBIN TIME [COAG] AM Lab 08/08/18 05:11 Ordered INR,PT,PROTHROMBIN TIME [COAG] AM Lab 08/09/18 05:11 Ordered INR,PT,PROTHROMBIN TIME [COAG] AM Lab 08/10/18 05:11 Ordered INR,PT,PROTHROMBIN TIME [COAG] AM Lab 08/11/18 05:11 Ordered MAGNESIUM [CHEM] AM Lab 08/05/18 05:11 Ordered PHOSPHORUS [CHEM] AM Lab 08/05/18 05:11 Ordered TROPONIN I [CHEM] AM Lab 08/05/18 05:11 Ordered Acetaminophen [Tylenol] Med 08/04/18 20:56 Ordered 650 mg PO Q4H PRN Albuterol [Proventil Neb Soln] Med 08/04/18 20:56 Ordered 2.5 mg NEB Q2H PRN Albuterol/Ipratropium [DuoNeb 3.0-0.5 MG/3 ML] Med 08/04/18 20:56 Ordered 3 ml NEB Q4H PRN Azithromycin [Zithromax] 250 mg Med 08/05/18 14:30 Ordered Sodium Chloride 0.9% [Normal Saline] 250 ml IV Q24H Bisacodyl [Dulcolax] Med 08/04/18 20:56 Ordered 5 mg PO DAILY PRN Ondansetron [Zofran ODT] Med 08/04/18 20:56 Ordered 4 mg PO Q4H PRN Ondansetron [Zofran] Med 08/04/18 20:56 Ordered 4 mg IV Q4H PRN Phenylephrine [Mayo-Synephrine] 10 mg Med 08/04/18 18:15 Active Sodium Chloride 0.9% [Normal Saline] 99 ml IV TITRATE Potassium Chloride [KCl 10 MEQ in Water 100 ML] 10 meq Med 08/04/18 21:15 Ordered Premix Bag 1 bag IV Q1H Warfarin [Coumadin] Med 08/04/18 21:15 Ordered 2.5 mg PO SUMOTUWEFRSA Warfarin [Coumadin] Med 08/10/18 21:01 Ordered 5 mg PO TH amLODIPine [Norvasc] Med 08/05/18 09:00 Ordered 10 mg PO DAILY atorvaSTATin Calcium [Atorvastatin Calcium] Med 08/05/18 21:00 Ordered 80 mg PO BEDTIME cefTRIAXone [Rocephin] 2 gm Med 08/05/18 17:00 Ordered Sodium Chloride 0.9% [Normal Saline] 100 ml IV Q24H Antiembolic Hose [OM.PC] Per Unit Routine Oth 08/04/18 20:57 Ordered Blood Culture x2 Reflex Set [OM.PC] Stat Oth 08/04/18 15:23 Ordered Resuscitation Status Routine Resus Stat 08/04/18 20:56 Ordered Medication Orders Phenylephrine HCl 10 mg/ (Sodium Chloride) 100 mls @ 60 mls/hr IV TITRATE HARRIETT; Protocol Assessment/Plan Comment:: Respiratory failure with hypoxemia * Patient be placed on BiPAP overnight. 08/04 to start with respirator therapy to titrate. * This is likely multifactorial to include fluid overload and secondary to his pneumonia. * IV fluids will be dropped to KVO * Urinary catheter for strict fluid assessment * Patient was counseled and he would like to be intubated if necessary. * ABG in the morning Sepsis secondary to Pneumonia, right lower lobe * Patient was started on Rocephin 2 g IV daily and given azithromycin 500 mg IV in the emergency room and will be continued on 250 mg IV daily * Fluid resuscitation in the emergency room. * Blood cultures obtained. * Urine for strep antigen and Legionella will be obtained. * Respiratory viral panel. * Influenza was negative. Nonsustained ventricular tachycardia * Monitor patient in the ICU. Diabetes mellitus * Hold metformin while in the hospital * Start basal insulin with Lantus 10 mg and sliding scale insulin * Get hemoglobin A1c and lipid panel History of CVA and memory loss * Patient is on Coumadin and it is subtherapeutic. * Continue on current dose of Coumadin because it will likely increase with antibiotics. * Follow INR daily. Hypomagnesemia * Given 2 g of IV magnesium in the ER. * We'll recheck in the morning. CODE STATUS: Full code Length of stay likely 4 days
[2018-08-04] MEDS ORDERED: 50% Dextrose in Water 50 ML Syringe IVPUSH PRN (21:37)
[2018-08-04] MEDS: Potassium Chloride 10 MEQ in Premix Bag 1 BAG IV SCH ×2 (21:59→23:00)
[2018-08-04] MEDS: Rosuvastatin 10 MG Tab PO SCH (21:59)
[2018-08-04] MEDS: Warfarin 2.5 MG Tab PO SCH (22:00)
[2018-08-04] MEDS: Insulin Lispro 100 Units/ML 3 ML Vial SUBCUT SCH (22:08)
[2018-08-05] MEDS: Potassium Chloride 10 MEQ in Premix Bag 1 BAG IV SCH ×6 (00:02→13:24)
[2018-08-05 06:51] LABS: HEMOGLOBIN A1C 7.1 % (4.50-6.20)
[2018-08-05] MEDS: Insulin Lispro 100 Units/ML 3 ML Vial SUBCUT SCH ×4 (09:46→21:02)
[2018-08-05] MEDS: Insulin Glarg,Human.Rec.Analog 100 UNIT/ML ML SUBCUT SCH (09:46)
[2018-08-05] MEDS: amLODIPine 10 MG Tab PO SCH (09:49)
--- NOTE | 2018-08-05 10:25 | PCM.PN ---
- General Info Date of Service: 08/05/18 Admission Dx/Problem (Free Text): Admission Diagnosis/Problem Admission Diagnosis/Problem Sepsis Subjective Update: June 05, 2018 Patient tolerated his BiPAP overnight and has been weaned down to 3 L of FiO2. Patient was also afebrile. He states he is feeling better and is already asking to leave. His will be in around 4 PM this evening from [place]. Functional Status: Reports: Tolerating Diet - Review of Systems General: Reports: No Symptoms. Denies: Fever HEENT: Reports: No Symptoms Pulmonary: Reports: Shortness of Breath, Cough Cardiovascular: Denies: Chest Pain, Palpitations Gastrointestinal: Reports: No Symptoms. Denies: Abdominal Pain Neurological: Reports: No Symptoms Psychiatric: Reports: No Symptoms - Patient Data Vitals - Most Recent: Last Vital Signs Temp 98.0 F 08/05/18 08:00 Pulse 86 08/05/18 08:00 Resp 19 08/05/18 08:00 BP 124/83 08/05/18 09:49 Pulse Ox 92 L 08/05/18 08:00 Weight - Most Recent: 241 lb 11.2 oz I&O - Last 24 Hours: Intake & Output 08/04/18 08/05/18 08/05/18 22:59 06:59 14:59 Intake Total 500 1218 Output Total 750 360 60 Balance -250 858 -60 Lab Results Last 24 Hours: Laboratory Results - last 24 hr 08/04/18 08/04/18 08/04/18 Range/Units 15:20 15:20 15:20 WBC 18.41 H (4.23-9.07) K/mm3 RBC 5.07 (4.63-6.08) M/mm3 Hgb 14.6 (13.7-17.5) gm/L Hct 44.8 (40.1-51.0) % MCV 88.4 (79.0-92.2) fl MCH 28.8 (25.7-32.2) pg MCHC 32.6 (32.2-35.5) g/dl RDW Std Deviation 44.8 H (35.1-43.9) fL Plt Count 185 (163-337) K/mm3 MPV 10.6 (9.4-12.3) fl Neut % (Auto) (34.0-67.9) % Lymph % (Auto) (21.8-53.1) % Haskell % (Auto) (5.3-12.2) % Eos % (Auto) (0.8-7.0) Baso % (Auto) (0.1-1.2) % Neut # (Auto) (1.78-5.38) K/mm3 Lymph # (Auto) (1.32-3.57) K/mm3 Haskell # (Auto) (0.30-0.82) K/mm3 Eos # (Auto) (0.04-0.54) K/mm3 Baso # (Auto) (0.01-0.08) K/mm3 Neutrophils % (Manual) 79 H (40-60) % Band Neutrophils % 4 (0-10) % Lymphocytes % (Manual) 6 L (20-40) % Atypical Lymphs % 4 % Monocytes % (Manual) 7 (2-10) % Eosinophils % (Manual) 0 L (0.8-7.0) % Basophils % (Manual) 0 L (0.2-1.2) Platelet Estimate Adequate Plt Morphology Comment See note RBC Morph Comment Normal PT 18.1 H (9.5-12.1) SECONDS INR 1.68 APTT 36 H (24-31) SECONDS D-Dimer, Quantitative 0.47 (0.19-0.50) mg/L Puncture Site ABG pH (7.35-7.45) ABG pCO2 (35.0-45.0) mmHg ABG pO2 (80.0-100.0) mmHg ABG HCO3 (22.0-26.0) meq/L ABG O2 Saturation (96.0-97.0) % ABG Base Excess (-2-2.0) Jair Test A-a Gradient mmHg O2 Delivery Device Oxygen Flow Rate FiO2 (21.00-100.00) % Blood Gas Comments Sodium 139 (136-145) mEq/L Potassium 3.4 L (3.5-5.1) mEq/L Chloride 102 (98-107) mEq/L Carbon Dioxide 26 (21-32) mEq/L Anion Gap 14.4 (5-15) BUN 17 (7-18) mg/dL Creatinine 1.4 H (0.7-1.3) mg/dL Est Cr Clr Drug Dosing TNP Estimated GFR (MDRD) 49 (>60) mL/min BUN/Creatinine Ratio 12.1 L (14-18) Glucose 191 H (83-115) mg/dL POC Glucose (83-110) mg/dL Hemoglobin A1c (4.50-6.20) % Lactic Acid (0.4-2.0) mmol/L Calcium 9.5 (8.5-10.1) mg/dL Phosphorus (2.6-4.7) mg/dL Magnesium 1.5 L (1.8-2.4) mg/dl Total Bilirubin 0.8 (0.2-1.0) mg/dL AST 14 L (15-37) U/L ALT 23 (16-63) U/L Alkaline Phosphatase 63 (46-116) U/L Troponin I 0.040 (0.00-0.056) ng/mL C-Reactive Protein (<1.0) mg/dL NT-Pro-B Natriuret Pep (0-450) pg/mL Total Protein 7.7 (6.4-8.2) g/dl Albumin 3.2 L (3.4-5.0) g/dl Globulin 4.5 gm/dL Albumin/Globulin Ratio 0.7 L (1-2) Triglycerides (<150) mg/dL Cholesterol (<200) mg/dL LDL Cholesterol Direct (<100) mg/dL HDL Cholesterol (40-59) mg/dL Urine Color (Yellow) Urine Appearance (Clear) Urine pH (5.0-8.0) Ur Specific Morton (1.005-1.030) Urine Protein (Negative) Urine Glucose (UA) (Negative) Urine Ketones (Negative) Urine Occult Blood (Negative) Urine Nitrite (Negative) Urine Bilirubin (Negative) Urine Urobilinogen (0.2-1.0) Ur Leukocyte Esterase (Negative) Urine RBC (0-5) /hpf Urine WBC (0-5) /hpf Ur Epithelial Cells (0-5) /hpf Urine Bacteria (FEW) /hpf Urine Mucus (FEW) /hpf 08/04/18 08/04/18 08/04/18 Range/Units 15:20 15:35 15:54 WBC (4.23-9.07) K/mm3 RBC (4.63-6.08) M/mm3 Hgb (13.7-17.5) gm/L Hct (40.1-51.0) % MCV (79.0-92.2) fl MCH (25.7-32.2) pg MCHC (32.2-35.5) g/dl RDW Std Deviation (35.1-43.9) fL Plt Count (163-337) K/mm3 MPV (9.4-12.3) fl Neut % (Auto) (34.0-67.9) % Lymph % (Auto) (21.8-53.1) % Haskell % (Auto) (5.3-12.2) % Eos % (Auto) (0.8-7.0) Baso % (Auto) (0.1-1.2) % Neut # (Auto) (1.78-5.38) K/mm3 Lymph # (Auto) (1.32-3.57) K/mm3 Haskell # (Auto) (0.30-0.82) K/mm3 Eos # (Auto) (0.04-0.54) K/mm3 Baso # (Auto) (0.01-0.08) K/mm3 Neutrophils % (Manual) (40-60) % Band Neutrophils % (0-10) % Lymphocytes % (Manual) (20-40) % Atypical Lymphs % % Monocytes % (Manual) (2-10) % Eosinophils % (Manual) (0.8-7.0) % Basophils % (Manual) (0.2-1.2) Platelet Estimate Plt Morphology Comment RBC Morph Comment PT (9.5-12.1) SECONDS INR APTT (24-31) SECONDS D-Dimer, Quantitative (0.19-0.50) mg/L Puncture Site Lt radial ABG pH 7.45 (7.35-7.45) ABG pCO2 35.1 (35.0-45.0) mmHg ABG pO2 63.0 L (80.0-100.0) mmHg ABG HCO3 24.3 (22.0-26.0) meq/L ABG O2 Saturation 94.2 L (96.0-97.0) % ABG Base Excess 1.2 (-2-2.0) Jair Test Positive A-a Gradient 175 mmHg O2 Delivery Device Nasal cannula Oxygen Flow Rate 6.0 FiO2 (21.00-100.00) % Blood Gas Comments Sodium (136-145) mEq/L Potassium (3.5-5.1) mEq/L Chloride (98-107) mEq/L Carbon Dioxide (21-32) mEq/L Anion Gap (5-15) BUN (7-18) mg/dL Creatinine (0.7-1.3) mg/dL Est Cr Clr Drug Dosing Estimated GFR (MDRD) (>60) mL/min BUN/Creatinine Ratio (14-18) Glucose (83-115) mg/dL POC Glucose (83-110) mg/dL Hemoglobin A1c (4.50-6.20) % Lactic Acid 2.0 (0.4-2.0) mmol/L Calcium (8.5-10.1) mg/dL Phosphorus (2.6-4.7) mg/dL Magnesium (1.8-2.4) mg/dl Total Bilirubin (0.2-1.0) mg/dL AST (15-37) U/L ALT (16-63) U/L Alkaline Phosphatase (46-116) U/L Troponin I (0.00-0.056) ng/mL C-Reactive Protein (<1.0) mg/dL NT-Pro-B Natriuret Pep 354 (0-450) pg/mL Total Protein (6.4-8.2) g/dl Albumin (3.4-5.0) g/dl Globulin gm/dL Albumin/Globulin Ratio (1-2) Triglycerides (<150) mg/dL Cholesterol (<200) mg/dL LDL Cholesterol Direct (<100) mg/dL HDL Cholesterol (40-59) mg/dL Urine Color (Yellow) Urine Appearance (Clear) Urine pH (5.0-8.0) Ur Specific Morton (1.005-1.030) Urine Protein (Negative) Urine Glucose (UA) (Negative) Urine Ketones (Negative) Urine Occult Blood (Negative) Urine Nitrite (Negative) Urine Bilirubin (Negative) Urine Urobilinogen (0.2-1.0) Ur Leukocyte Esterase (Negative) Urine RBC (0-5) /hpf Urine WBC (0-5) /hpf Ur Epithelial Cells (0-5) /hpf Urine Bacteria (FEW) /hpf Urine Mucus (FEW) /hpf 08/04/18 08/04/18 08/04/18 Range/Units 16:35 18:12 19:40 WBC (4.23-9.07) K/mm3 RBC (4.63-6.08) M/mm3 Hgb (13.7-17.5) gm/L Hct (40.1-51.0) % MCV (79.0-92.2) fl MCH (25.7-32.2) pg MCHC (32.2-35.5) g/dl RDW Std Deviation (35.1-43.9) fL Plt Count (163-337) K/mm3 MPV (9.4-12.3) fl Neut % (Auto) (34.0-67.9) % Lymph % (Auto) (21.8-53.1) % Haskell % (Auto) (5.3-12.2) % Eos % (Auto) (0.8-7.0) Baso % (Auto) (0.1-1.2) % Neut # (Auto) (1.78-5.38) K/mm3 Lymph # (Auto) (1.32-3.57) K/mm3 Haskell # (Auto) (0.30-0.82) K/mm3 Eos # (Auto) (0.04-0.54) K/mm3 Baso # (Auto) (0.01-0.08) K/mm3 Neutrophils % (Manual) (40-60) % Band Neutrophils % (0-10) % Lymphocytes % (Manual) (20-40) % Atypical Lymphs % % Monocytes % (Manual) (2-10) % Eosinophils % (Manual) (0.8-7.0) % Basophils % (Manual) (0.2-1.2) Platelet Estimate Plt Morphology Comment RBC Morph Comment PT (9.5-12.1) SECONDS INR APTT (24-31) SECONDS D-Dimer, Quantitative (0.19-0.50) mg/L Puncture Site ABG pH (7.35-7.45) ABG pCO2 (35.0-45.0) mmHg ABG pO2 (80.0-100.0) mmHg ABG HCO3 (22.0-26.0) meq/L ABG O2 Saturation (96.0-97.0) % ABG Base Excess (-2-2.0) Jair Test A-a Gradient mmHg O2 Delivery Device Oxygen Flow Rate FiO2 (21.00-100.00) % Blood Gas Comments Sodium (136-145) mEq/L Potassium (3.5-5.1) mEq/L Chloride (98-107) mEq/L Carbon Dioxide (21-32) mEq/L Anion Gap (5-15) BUN (7-18) mg/dL Creatinine (0.7-1.3) mg/dL Est Cr Clr Drug Dosing Estimated GFR (MDRD) (>60) mL/min BUN/Creatinine Ratio (14-18) Glucose (83-115) mg/dL POC Glucose (83-110) mg/dL Hemoglobin A1c (4.50-6.20) % Lactic Acid 1.7 (0.4-2.0) mmol/L Calcium (8.5-10.1) mg/dL Phosphorus (2.6-4.7) mg/dL Magnesium (1.8-2.4) mg/dl Total Bilirubin (0.2-1.0) mg/dL AST (15-37) U/L ALT (16-63) U/L Alkaline Phosphatase (46-116) U/L Troponin I 0.041 (0.00-0.056) ng/mL C-Reactive Protein (<1.0) mg/dL NT-Pro-B Natriuret Pep (0-450) pg/mL Total Protein (6.4-8.2) g/dl Albumin (3.4-5.0) g/dl Globulin gm/dL Albumin/Globulin Ratio (1-2) Triglycerides (<150) mg/dL Cholesterol (<200) mg/dL LDL Cholesterol Direct (<100) mg/dL HDL Cholesterol (40-59) mg/dL Urine Color Yellow (Yellow) Urine Appearance Clear (Clear) Urine pH 5.5 (5.0-8.0) Ur Specific Morton 1.025 (1.005-1.030) Urine Protein 1+ H (Negative) Urine Glucose (UA) Negative (Negative) Urine Ketones Negative (Negative) Urine Occult Blood Negative (Negative) Urine Nitrite Negative (Negative) Urine Bilirubin Negative (Negative) Urine Urobilinogen 0.2 (0.2-1.0) Ur Leukocyte Esterase Negative (Negative) Urine RBC 0-5 (0-5) /hpf Urine WBC 0-5 (0-5) /hpf Ur Epithelial Cells 0-5 (0-5) /hpf Urine Bacteria Few (FEW) /hpf Urine Mucus Not seen (FEW) /hpf 08/04/18 08/05/18 08/05/18 Range/Units 21:17 05:33 05:33 WBC 14.21 H (4.23-9.07) K/mm3 RBC 4.07 L (4.63-6.08) M/mm3 Hgb 12.2 L D (13.7-17.5) gm/L Hct 36.4 L (40.1-51.0) % MCV 89.4 (79.0-92.2) fl MCH 30.0 (25.7-32.2) pg MCHC 33.5 (32.2-35.5) g/dl RDW Std Deviation 45.3 H (35.1-43.9) fL Plt Count 153 L (163-337) K/mm3 MPV 11.0 (9.4-12.3) fl Neut % (Auto) 69.2 H (34.0-67.9) % Lymph % (Auto) 20.1 L (21.8-53.1) % Haskell % (Auto) 9.8 (5.3-12.2) % Eos % (Auto) 0.8 (0.8-7.0) Baso % (Auto) 0.1 (0.1-1.2) % Neut # (Auto) 9.83 H (1.78-5.38) K/mm3 Lymph # (Auto) 2.86 (1.32-3.57) K/mm3 Haskell # (Auto) 1.39 H (0.30-0.82) K/mm3 Eos # (Auto) 0.11 (0.04-0.54) K/mm3 Baso # (Auto) 0.02 (0.01-0.08) K/mm3 Neutrophils % (Manual) (40-60) % Band Neutrophils % (0-10) % Lymphocytes % (Manual) (20-40) % Atypical Lymphs % % Monocytes % (Manual) (2-10) % Eosinophils % (Manual) (0.8-7.0) % Basophils % (Manual) (0.2-1.2) Platelet Estimate Plt Morphology Comment RBC Morph Comment PT 17.5 H (9.5-12.1) SECONDS INR 1.62 APTT (24-31) SECONDS D-Dimer, Quantitative (0.19-0.50) mg/L Puncture Site ABG pH (7.35-7.45) ABG pCO2 (35.0-45.0) mmHg ABG pO2 (80.0-100.0) mmHg ABG HCO3 (22.0-26.0) meq/L ABG O2 Saturation (96.0-97.0) % ABG Base Excess (-2-2.0) Jair Test A-a Gradient mmHg O2 Delivery Device Oxygen Flow Rate FiO2 (21.00-100.00) % Blood Gas Comments Sodium (136-145) mEq/L Potassium (3.5-5.1) mEq/L Chloride (98-107) mEq/L Carbon Dioxide (21-32) mEq/L Anion Gap (5-15) BUN (7-18) mg/dL Creatinine (0.7-1.3) mg/dL Est Cr Clr Drug Dosing Estimated GFR (MDRD) (>60) mL/min BUN/Creatinine Ratio (14-18) Glucose (83-115) mg/dL POC Glucose 163 H (83-110) mg/dL Hemoglobin A1c (4.50-6.20) % Lactic Acid (0.4-2.0) mmol/L Calcium (8.5-10.1) mg/dL Phosphorus (2.6-4.7) mg/dL Magnesium (1.8-2.4) mg/dl Total Bilirubin (0.2-1.0) mg/dL AST (15-37) U/L ALT (16-63) U/L Alkaline Phosphatase (46-116) U/L Troponin I (0.00-0.056) ng/mL C-Reactive Protein (<1.0) mg/dL NT-Pro-B Natriuret Pep (0-450) pg/mL Total Protein (6.4-8.2) g/dl Albumin (3.4-5.0) g/dl Globulin gm/dL Albumin/Globulin Ratio (1-2) Triglycerides (<150) mg/dL Cholesterol (<200) mg/dL LDL Cholesterol Direct (<100) mg/dL HDL Cholesterol (40-59) mg/dL Urine Color (Yellow) Urine Appearance (Clear) Urine pH (5.0-8.0) Ur Specific Morton (1.005-1.030) Urine Protein (Negative) Urine Glucose (UA) (Negative) Urine Ketones (Negative) Urine Occult Blood (Negative) Urine Nitrite (Negative) Urine Bilirubin (Negative) Urine Urobilinogen (0.2-1.0) Ur Leukocyte Esterase (Negative) Urine RBC (0-5) /hpf Urine WBC (0-5) /hpf Ur Epithelial Cells (0-5) /hpf Urine Bacteria (FEW) /hpf Urine Mucus (FEW) /hpf 08/05/18 08/05/18 08/05/18 Range/Units 05:33 05:33 06:04 WBC (4.23-9.07) K/mm3 RBC (4.63-6.08) M/mm3 Hgb (13.7-17.5) gm/L Hct (40.1-51.0) % MCV (79.0-92.2) fl MCH (25.7-32.2) pg MCHC (32.2-35.5) g/dl RDW Std Deviation (35.1-43.9) fL Plt Count (163-337) K/mm3 MPV (9.4-12.3) fl Neut % (Auto) (34.0-67.9) % Lymph % (Auto) (21.8-53.1) % Haskell % (Auto) (5.3-12.2) % Eos % (Auto) (0.8-7.0) Baso % (Auto) (0.1-1.2) % Neut # (Auto) (1.78-5.38) K/mm3 Lymph # (Auto) (1.32-3.57) K/mm3 Haskell # (Auto) (0.30-0.82) K/mm3 Eos # (Auto) (0.04-0.54) K/mm3 Baso # (Auto) (0.01-0.08) K/mm3 Neutrophils % (Manual) (40-60) % Band Neutrophils % (0-10) % Lymphocytes % (Manual) (20-40) % Atypical Lymphs % % Monocytes % (Manual) (2-10) % Eosinophils % (Manual) (0.8-7.0) % Basophils % (Manual) (0.2-1.2) Platelet Estimate Plt Morphology Comment RBC Morph Comment PT (9.5-12.1) SECONDS INR APTT (24-31) SECONDS D-Dimer, Quantitative (0.19-0.50) mg/L Puncture Site ABG pH (7.35-7.45) ABG pCO2 (35.0-45.0) mmHg ABG pO2 (80.0-100.0) mmHg ABG HCO3 (22.0-26.0) meq/L ABG O2 Saturation (96.0-97.0) % ABG Base Excess (-2-2.0) Jair Test A-a Gradient mmHg O2 Delivery Device Oxygen Flow Rate FiO2 (21.00-100.00) % Blood Gas Comments Sodium 140 (136-145) mEq/L Potassium 3.4 L (3.5-5.1) mEq/L Chloride 105 (98-107) mEq/L Carbon Dioxide 25 (21-32) mEq/L Anion Gap 13.4 (5-15) BUN 16 (7-18) mg/dL Creatinine 1.0 (0.7-1.3) mg/dL Est Cr Clr Drug Dosing 67.90 Estimated GFR (MDRD) > 60 (>60) mL/min BUN/Creatinine Ratio 16.0 (14-18) Glucose 139 H (83-115) mg/dL POC Glucose 151 H (83-110) mg/dL Hemoglobin A1c 7.10 H (4.50-6.20) % Lactic Acid (0.4-2.0) mmol/L Calcium 8.3 L (8.5-10.1) mg/dL Phosphorus 3.1 (2.6-4.7) mg/dL Magnesium 1.9 (1.8-2.4) mg/dl Total Bilirubin 1.0 (0.2-1.0) mg/dL AST 18 (15-37) U/L ALT 17 (16-63) U/L Alkaline Phosphatase 50 (46-116) U/L Troponin I 0.029 (0.00-0.056) ng/mL C-Reactive Protein 21.7 H* (<1.0) mg/dL NT-Pro-B Natriuret Pep (0-450) pg/mL Total Protein 6.2 L (6.4-8.2) g/dl Albumin 2.4 L (3.4-5.0) g/dl Globulin 3.8 gm/dL Albumin/Globulin Ratio 0.6 L (1-2) Triglycerides 102 (<150) mg/dL Cholesterol 79 (<200) mg/dL LDL Cholesterol Direct 24 (<100) mg/dL HDL Cholesterol 48.0 (40-59) mg/dL Urine Color (Yellow) Urine Appearance (Clear) Urine pH (5.0-8.0) Ur Specific Morton (1.005-1.030) Urine Protein (Negative) Urine Glucose (UA) (Negative) Urine Ketones (Negative) Urine Occult Blood (Negative) Urine Nitrite (Negative) Urine Bilirubin (Negative) Urine Urobilinogen (0.2-1.0) Ur Leukocyte Esterase (Negative) Urine RBC (0-5) /hpf Urine WBC (0-5) /hpf Ur Epithelial Cells (0-5) /hpf Urine Bacteria (FEW) /hpf Urine Mucus (FEW) /hpf 08/05/18 Range/Units 06:05 WBC (4.23-9.07) K/mm3 RBC (4.63-6.08) M/mm3 Hgb (13.7-17.5) gm/L Hct (40.1-51.0) % MCV (79.0-92.2) fl MCH (25.7-32.2) pg MCHC (32.2-35.5) g/dl RDW Std Deviation (35.1-43.9) fL Plt Count (163-337) K/mm3 MPV (9.4-12.3) fl Neut % (Auto) (34.0-67.9) % Lymph % (Auto) (21.8-53.1) % Haskell % (Auto) (5.3-12.2) % Eos % (Auto) (0.8-7.0) Baso % (Auto) (0.1-1.2) % Neut # (Auto) (1.78-5.38) K/mm3 Lymph # (Auto) (1.32-3.57) K/mm3 Haskell # (Auto) (0.30-0.82) K/mm3 Eos # (Auto) (0.04-0.54) K/mm3 Baso # (Auto) (0.01-0.08) K/mm3 Neutrophils % (Manual) (40-60) % Band Neutrophils % (0-10) % Lymphocytes % (Manual) (20-40) % Atypical Lymphs % % Monocytes % (Manual) (2-10) % Eosinophils % (Manual) (0.8-7.0) % Basophils % (Manual) (0.2-1.2) Platelet Estimate Plt Morphology Comment RBC Morph Comment PT (9.5-12.1) SECONDS INR APTT (24-31) SECONDS D-Dimer, Quantitative (0.19-0.50) mg/L Puncture Site Rt radial ABG pH 7.36 (7.35-7.45) ABG pCO2 46.6 H (35.0-45.0) mmHg ABG pO2 76.0 L (80.0-100.0) mmHg ABG HCO3 25.7 (22.0-26.0) meq/L ABG O2 Saturation 95.8 L (96.0-97.0) % ABG Base Excess 0.4 (-2-2.0) Jair Test Positive A-a Gradient 122 mmHg O2 Delivery Device Bipap Oxygen Flow Rate 5.0 FiO2 40.00 (21.00-100.00) % Blood Gas Comments Bipap 10/5 Sodium (136-145) mEq/L Potassium (3.5-5.1) mEq/L Chloride (98-107) mEq/L Carbon Dioxide (21-32) mEq/L Anion Gap (5-15) BUN (7-18) mg/dL Creatinine (0.7-1.3) mg/dL Est Cr Clr Drug Dosing Estimated GFR (MDRD) (>60) mL/min BUN/Creatinine Ratio (14-18) Glucose (83-115) mg/dL POC Glucose (83-110) mg/dL Hemoglobin A1c (4.50-6.20) % Lactic Acid (0.4-2.0) mmol/L Calcium (8.5-10.1) mg/dL Phosphorus (2.6-4.7) mg/dL Magnesium (1.8-2.4) mg/dl Total Bilirubin (0.2-1.0) mg/dL AST (15-37) U/L ALT (16-63) U/L Alkaline Phosphatase (46-116) U/L Troponin I (0.00-0.056) ng/mL C-Reactive Protein (<1.0) mg/dL NT-Pro-B Natriuret Pep (0-450) pg/mL Total Protein (6.4-8.2) g/dl Albumin (3.4-5.0) g/dl Globulin gm/dL Albumin/Globulin Ratio (1-2) Triglycerides (<150) mg/dL Cholesterol (<200) mg/dL LDL Cholesterol Direct (<100) mg/dL HDL Cholesterol (40-59) mg/dL Urine Color (Yellow) Urine Appearance (Clear) Urine pH (5.0-8.0) Ur Specific Morton (1.005-1.030) Urine Protein (Negative) Urine Glucose (UA) (Negative) Urine Ketones (Negative) Urine Occult Blood (Negative) Urine Nitrite (Negative) Urine Bilirubin (Negative) Urine Urobilinogen (0.2-1.0) Ur Leukocyte Esterase (Negative) Urine RBC (0-5) /hpf Urine WBC (0-5) /hpf Ur Epithelial Cells (0-5) /hpf Urine Bacteria (FEW) /hpf Urine Mucus (FEW) /hpf Néstor Results Last 24 Hours: Microbiology 08/04/18 15:40 Influenza Type A Antigen Screen - Final Nasopharyngeal Swab NEGATIVE INFLUENZA A VIRUS AG REFERENCE RANGE: NEGATIVE Influenza Type B Antigen Screen - Final NEGATIVE INFLUENZA B VIRUS AG REFERENCE RANGE: NEGATIVE Med Orders - Current: Current Medications Acetaminophen (Tylenol) 650 mg PO Q4H PRN PRN Reason: Pain (Mild 1-3)/fever Albuterol (Proventil Neb Soln) 2.5 mg NEB Q2H PRN PRN Reason: Shortness Of Breath/wheezing Albuterol/Ipratropium (Duoneb 3.0-0.5 Mg/3 Ml) 3 ml NEB Q4H PRN PRN Reason: Shortness Of Breath/wheezing Amlodipine Besylate (Norvasc) 10 mg PO DAILY HARRIETT Last Admin: 08/05/18 09:49 Dose: 10 mg Bisacodyl (Dulcolax) 5 mg PO DAILY PRN PRN Reason: Constipation Dextrose/Water (Dextrose 50% In Water) 50 ml IVPUSH ASDIRECTED PRN PRN Reason: Hypoglycemia Phenylephrine HCl 10 mg/ (Sodium Chloride) 100 mls @ 60 mls/hr IV TITRATE HARRIETT; Protocol Azithromycin 250 mg/ Sodium (Chloride) 250 mls @ 250 mls/hr IV Q24H COUNT INCLUDES THE [facility] Ceftriaxone Sodium 2 gm/ (Sodium Chloride) 100 mls @ 200 mls/hr IV Q24H COUNT INCLUDES THE [facility] Sodium Chloride (Normal Saline) 1,000 mls @ 50 mls/hr IV ASDIRECTED COUNT INCLUDES THE [facility] Last Admin: 08/04/18 21:00 Dose: 50 mls/hr Potassium Chloride 10 meq/ (Premix) 100 mls @ 100 mls/hr IV Q1H [facility] Stop: 08/05/18 12:59 Last Admin: 08/05/18 09:49 Dose: 100 mls/hr Insulin Glargine (Lantus) 10 unit SUBCUT DAILY COUNT INCLUDES THE [facility] Last Admin: 08/05/18 09:46 Dose: 10 units Insulin Human Lispro (Humalog) 0 unit SUBCUT QIDACANDBED COUNT INCLUDES THE [facility]; Protocol Last Admin: 08/05/18 09:46 Dose: 1 unit Ondansetron HCl (Zofran Odt) 4 mg PO Q4H PRN PRN Reason: nausea, able to take PO Ondansetron HCl (Zofran) 4 mg IV Q4H PRN PRN Reason: Nausea/Vomiting Rosuvastatin Calcium (Crestor) 20 mg PO BEDTIME COUNT INCLUDES THE [facility] Last Admin: 08/04/18 21:59 Dose: 20 mg Warfarin Sodium (Coumadin) 2.5 mg PO SuMoTuWeFrSa@1800 COUNT INCLUDES THE [facility] Last Admin: 08/04/18 22:00 Dose: 2.5 mg Warfarin Sodium (Coumadin) 5 mg PO Th@1800 COUNT INCLUDES THE [facility] Discontinued Medications Magnesium Sulfate 2 gm/ Premix 50 mls @ 50 mls/hr IV ONETIME ONE Stop: 08/04/18 17:32 Last Admin: 08/04/18 17:18 Dose: 50 mls/hr Azithromycin 500 mg/ Sodium (Chloride) 250 mls @ 250 mls/hr IV ONETIME ONE Stop: 08/04/18 17:32 Last Admin: 08/04/18 17:53 Dose: 250 mls/hr Ceftriaxone Sodium 2 gm/ (Sodium Chloride) 100 mls @ 200 mls/hr IV ONETIME STA Stop: 08/04/18 17:40 Last Admin: 08/04/18 17:19 Dose: 200 mls/hr Sodium Chloride (Normal Saline) 1,000 mls @ 999 mls/hr IV ONETIME ONE Stop: 08/04/18 18:21 Last Admin: 08/04/18 17:30 Dose: 999 mls/hr Norepinephrine Bitartrate 4 mg (/ Dextrose/Water) 250 mls @ 37.5 mls/hr IV TITRATE [facility]; Protocol Sodium Chloride (Normal Saline) 1,000 mls @ 500 mls/hr IV ONETIME ONE Stop: 08/04/18 20:58 Last Infusion: 08/04/18 20:39 Dose: 50 mls/hr Potassium Chloride 10 meq/ (Premix) 100 mls @ 100 mls/hr IV Q1H [facility] Stop: 08/05/18 01:14 Last Admin: 08/05/18 01:02 Dose: 100 mls/hr Metoprolol Tartrate (Lopressor) 5 mg IVPUSH ONETIME ONE Stop: 08/04/18 15:19 Last Admin: 08/04/18 15:20 Dose: 5 mg Metoprolol Tartrate (Lopressor) Confirm Administered Dose 5 mg .ROUTE .STK-MED ONE Stop: 08/04/18 15:20 Last Admin: 08/04/18 15:33 Dose: Not Given - Exam Quality Assessment: Supplemental Oxygen, Urine Catheter General: Alert, Oriented HEENT: Pupils Equal, Other Neck: Supple Lungs: Rales, Other (Mildly improved but continued increased respiratory rate and effort.) Cardiovascular: Regular Rate, Regular Rhythm Extremities: Normal Inspection, Pedal Edema Neurological: No New Focal Deficit Psy/Mental Status: Alert, Normal Affect, Normal Mood Physical Findings Comments:: Portable 1 view chest x-ray today showed no significant change from yesterday. - Problem List & Annotations (1) Respiratory failure with hypoxia SNOMED Code(s): 78334267836882972 Code(s): J96.91 - RESPIRATORY FAILURE, UNSPECIFIED WITH HYPOXIA Status: Acute Current Visit: Yes (2) Pneumonia SNOMED Code(s): 419438796 Code(s): J18.9 - PNEUMONIA, UNSPECIFIED ORGANISM Status: Acute Current Visit: Yes (3) Sepsis SNOMED Code(s): 32919188 Code(s): A41.9 - SEPSIS, UNSPECIFIED ORGANISM Status: Acute Current Visit : Yes (4) Urinary retention SNOMED Code(s): 772103949 Code(s): R33.9 - RETENTION OF URINE, UNSPECIFIED Status: Acute Current Visit: Yes - Problem List Review Problem List Initiated/Reviewed/Updated: Yes - My Orders Last 24 Hours: My Active Orders 08/04/18 20:45 Sodium Chloride 0.9% [Normal Saline] 1,000 ml IV ASDIRECTED 08/04/18 20:56 Ambulate [RC] ASDIRECTED Blood Glucose Check, Bedside [RC] WITHMEALSANDBED Height and Weight [RC] 04 Oxygen Therapy [RC] PRN Up ad [place] [RC] ASDIRECTED VTE/DVT Education [RC] Vital Signs [RC] Q4HR Consult to Diabetic Nurse Specialist [CONS] Routine Respiratory Care Assess and Treatment [CONS] Routine Acetaminophen [Tylenol] 650 mg PO Q4H PRN Albuterol [Proventil Neb Soln] 2.5 mg NEB Q2H PRN Albuterol/Ipratropium [DuoNeb 3.0-0.5 MG/3 ML] 3 ml NEB Q4H PRN Bisacodyl [Dulcolax] 5 mg PO DAILY PRN Ondansetron [Zofran ODT] 4 mg PO Q4H PRN Ondansetron [Zofran] 4 mg IV Q4H PRN Resuscitation Status Routine 08/04/18 20:57 Antiembolic Hose [OM.PC] Per Unit Routine 08/04/18 20:58 RESPIRATORY PANEL PCR [MREF] Routine 08/04/18 20:59 Antiembolic Devices [RC] QSHIFT RT Aerosol Therapy [RC] ASDIRECTED 08/04/18 21:05 BIPAP Adult [RT BiPAP/CPAP] [RC] ASDIRECTED 08/04/18 21:15 Warfarin [Coumadin] 2.5 mg PO SuMoTuWeFrSa@1800 08/04/18 21:30 Rosuvastatin [Crestor] 20 mg PO BEDTIME 08/04/18 21:37 Dextrose 50% in Water 50 ml IVPUSH ASDIRECTED PRN 08/04/18 21:40 LEGIONELLA ANTIGEN [MREF] Routine STREP PNEUMONIAE ANTIGEN [MREF] Routine 08/04/18 22:00 Insulin Lispro [HumaLOG] See Protocol SUBCUT QIDACANDBED 08/05/18 05:11 Chest 1V Frontal [CR] AM 08/05/18 09:00 Insulin Glarg,Human.Rec.Analog [LantUS] 10 unit SUBCUT DAILY Potassium Chloride [KCl 10 MEQ in Water 100 ML] 10 meq Premix Bag 1 bag IV Q1H amLODIPine [Norvasc] 10 mg PO DAILY 08/05/18 16:30 Azithromycin [Zithromax] 250 mg Sodium Chloride 0.9% [Normal Saline] 250 ml IV Q24H 08/05/18 17:00 cefTRIAXone [Rocephin] 2 gm Sodium Chloride 0.9% [Normal Saline] 100 ml IV Q24H 08/05/18 Breakfast Consistent Carbohydrate Diet [DIET] 08/06/18 05:11 INR,PT,PROTHROMBIN TIME [COAG] AM 08/07/18 05:11 INR,PT,PROTHROMBIN TIME [COAG] AM 08/08/18 05:11 INR,PT,PROTHROMBIN TIME [COAG] AM 08/09/18 05:11 INR,PT,PROTHROMBIN TIME [COAG] AM 08/10/18 05:11 INR,PT,PROTHROMBIN TIME [COAG] AM 08/10/18 18:00 Warfarin [Coumadin] 5 mg PO Th@1800 08/11/18 05:11 INR,PT,PROTHROMBIN TIME [COAG] AM - Plan Plan:: Respiratory failure with hypoxemia * Patient be placed on BiPAP overnight. 08/04 to start with respirator therapy to titrate. * This is likely multifactorial to include fluid overload and secondary to his pneumonia. * IV fluids will be dropped to KVO * Urinary catheter for strict fluid assessment * Patient was counseled and he would like to be intubated if necessary. * ABG: PH 7.36, PCO2 46.6, PO2 76.0, HCO3 25.7 on oxygen flow rate of 5 L on BiPAP Sepsis secondary to Pneumonia, right lower lobe * Patient was started on Rocephin 2 g IV daily and given azithromycin 500 mg IV in the emergency room and will be continued on 250 mg IV daily * Fluid resuscitation in the emergency room. * Blood cultures obtained. * Urine for strep antigen and Legionella will be obtained. * Respiratory viral panel. * Influenza was negative. Nonsustained ventricular tachycardia * Monitor patient in the ICU. Diabetes mellitus * Hold metformin while in the hospital * Start basal insulin with Lantus 10 mg and sliding scale insulin * Get hemoglobin A1c and lipid panel History of CVA and memory loss * Patient is on Coumadin and it is subtherapeutic. * Continue on current dose of Coumadin because it will likely increase with antibiotics. * Follow INR daily. Hypomagnesemia * Given 2 g of IV magnesium in the ER. * We'll recheck in the morning. CODE STATUS: Full code Length of stay likely 4 days
[2018-08-05] MEDS: Sodium Chloride 0.9% 1,000 ML IV SCH (11:10)
[2018-08-05] MEDS: cefTRIAXone 2 GM in Sodium Chloride 0.9% 100 ML IV SCH (16:52)
[2018-08-05] MEDS: Azithromycin 250 MG in Sodium Chloride 0.9% 250 ML IV SCH (16:53)
[2018-08-05] MEDS: Warfarin 2.5 MG Tab PO SCH (17:08)
[2018-08-05] MEDS: Acetaminophen 325 MG Tab PO PRN (20:40)
[2018-08-05] MEDS: Rosuvastatin 10 MG Tab PO SCH (20:41)
[2018-08-06] MEDS: Insulin Lispro 100 Units/ML 3 ML Vial SUBCUT SCH ×4 (06:14→21:10)
[2018-08-06] MEDS: amLODIPine 10 MG Tab PO SCH (08:43)
[2018-08-06] MEDS: Insulin Glarg,Human.Rec.Analog 100 UNIT/ML ML SUBCUT SCH (08:44)
[2018-08-06] MEDS: Magnesium Oxide 400 MG Tab PO SCH ×2 (10:30→20:40)
[2018-08-06] MEDS: Tamsulosin 0.4 MG Cap.ER PO SCH (10:30)
[2018-08-06] MEDS: Azithromycin 250 MG in Sodium Chloride 0.9% 250 ML IV SCH (16:27)
[2018-08-06] MEDS: Warfarin 2.5 MG Tab PO SCH (17:21)
[2018-08-06] MEDS: cefTRIAXone 2 GM in Sodium Chloride 0.9% 100 ML IV SCH (17:29)
[2018-08-06] MEDS: Rosuvastatin 10 MG Tab PO SCH (20:39)
[2018-08-06] MEDS: Acetaminophen 325 MG Tab PO PRN (20:40)
--- NOTE | 2018-08-07 06:35 | CR ---
Chest: Portable view of the chest was obtained. Comparison: Prior chest x-ray 08/04/18. Heart size is within normal limits. Minimal density noted within both lung bases which appears stable from prior exam and most likely representing artifact. Lungs otherwise are clear. Bony structures are grossly intact. Impression: 1. Nothing acute is seen. Diagnostic code #2 Mild disagree with preliminary report from [facility], finalized on 08/05/18, 10:24 AM Central Time, code #2
[2018-08-07] MEDS ORDERED: 50% Dextrose in Water 50 ML SDV IV PRN (07:00)
[2018-08-07] MEDS: Insulin Lispro 100 Units/ML 3 ML Vial SUBCUT SCH ×4 (09:14→21:25)
[2018-08-07] MEDS: Insulin Glarg,Human.Rec.Analog 100 UNIT/ML ML SUBCUT SCH (09:15)
[2018-08-07] MEDS: amLODIPine 10 MG Tab PO SCH (09:18)
[2018-08-07] MEDS: Magnesium Oxide 400 MG Tab PO SCH ×2 (09:18→21:24)
[2018-08-07] MEDS: Tamsulosin 0.4 MG Cap.ER PO SCH (09:20)
[2018-08-07] MEDS: Acetaminophen 325 MG Tab PO PRN ×2 (09:23→21:40)
[2018-08-07] MEDS ORDERED: Magnesium Sulfate/Water 2 GM in Premix Bag 1 BAG IV ONE (11:00)
--- NOTE | 2018-08-07 11:04 | PCM.PN ---
- General Info Date of Service: 08/06/18 Admission Dx/Problem (Free Text): Admission Diagnosis/Problem Admission Diagnosis/Problem Sepsis Subjective Update: June 05, 2018 Patient tolerated his BiPAP overnight and has been weaned down to 3 L of FiO2. Patient was also afebrile. He states he is feeling better and is already asking to leave. His will be in around 4 PM this evening from [place]. June 06, 2018 Patient did well overnight. He continued to tolerate his BiPAP. He continued to wean off of his FiO2. I spoke with his . Functional Status: Reports: Pain Controlled - Review of Systems General: Reports: Fever HEENT: Reports: No Symptoms Pulmonary: Reports: Cough, Sputum Cardiovascular: Reports: No Symptoms. Denies: Chest Pain, Palpitations Gastrointestinal: Reports: No Symptoms Genitourinary: Reports: No Symptoms - Patient Data Vitals - Most Recent: Last Vital Signs Temp 98.2 F 08/07/18 09:07 Pulse 92 08/07/18 09:07 Resp 18 08/07/18 09:07 BP 112/76 08/07/18 09:18 Pulse Ox 94 L 08/07/18 09:52 Weight - Most Recent: 242 lb 4.8 oz I&O - Last 24 Hours: Intake & Output 08/06/18 08/07/18 08/07/18 22:59 06:59 14:59 Intake Total 1430 120 360 Output Total 75 150 125 Balance 1355 -30 235 Lab Results Last 24 Hours: Laboratory Results - last 24 hr 08/06/18 08/06/18 08/06/18 Range/Units 11:56 17:15 20:46 WBC (4.23-9.07) K/mm3 RBC (4.63-6.08) M/mm3 Hgb (13.7-17.5) gm/L Hct (40.1-51.0) % MCV (79.0-92.2) fl MCH (25.7-32.2) pg MCHC (32.2-35.5) g/dl RDW Std Deviation (35.1-43.9) fL Plt Count (163-337) K/mm3 MPV (9.4-12.3) fl Neut % (Auto) (34.0-67.9) % Lymph % (Auto) (21.8-53.1) % [place] % (Auto) (5.3-12.2) % Eos % (Auto) (0.8-7.0) Baso % (Auto) (0.1-1.2) % Neut # (Auto) (1.78-5.38) K/mm3 Lymph # (Auto) (1.32-3.57) K/mm3 [place] # (Auto) (0.30-0.82) K/mm3 Eos # (Auto) (0.04-0.54) K/mm3 Baso # (Auto) (0.01-0.08) K/mm3 Manual Slide Review PT (9.5-12.1) SECONDS INR Sodium (136-145) mEq/L Potassium (3.5-5.1) mEq/L Chloride (98-107) mEq/L Carbon Dioxide (21-32) mEq/L Anion Gap (5-15) BUN (7-18) mg/dL Creatinine (0.7-1.3) mg/dL Est Cr Clr Drug Dosing mL/min Estimated GFR (MDRD) (>60) mL/min BUN/Creatinine Ratio (14-18) Glucose (83-115) mg/dL POC Glucose 181 H 171 H 134 H (83-110) mg/dL Calcium (8.5-10.1) mg/dL Magnesium (1.8-2.4) mg/dl Total Bilirubin (0.2-1.0) mg/dL AST (15-37) U/L ALT (16-63) U/L Alkaline Phosphatase (46-116) U/L Total Protein (6.4-8.2) g/dl Albumin (3.4-5.0) g/dl Globulin gm/dL Albumin/Globulin Ratio (1-2) 08/07/18 08/07/18 08/07/18 Range/Units 05:40 05:40 05:40 WBC 10.81 H (4.23-9.07) K/mm3 RBC 4.19 L (4.63-6.08) M/mm3 Hgb 12.6 L (13.7-17.5) gm/L Hct 36.8 L (40.1-51.0) % MCV 87.8 (79.0-92.2) fl MCH 30.1 (25.7-32.2) pg MCHC 34.2 (32.2-35.5) g/dl RDW Std Deviation 42.6 (35.1-43.9) fL Plt Count 179 (163-337) K/mm3 MPV 10.6 (9.4-12.3) fl Neut % (Auto) 59.7 (34.0-67.9) % Lymph % (Auto) 24.6 (21.8-53.1) % [place] % (Auto) 12.4 H (5.3-12.2) % Eos % (Auto) 3.1 (0.8-7.0) Baso % (Auto) 0.2 (0.1-1.2) % Neut # (Auto) 6.46 H (1.78-5.38) K/mm3 Lymph # (Auto) 2.66 (1.32-3.57) K/mm3 [place] # (Auto) 1.34 H (0.30-0.82) K/mm3 Eos # (Auto) 0.33 (0.04-0.54) K/mm3 Baso # (Auto) 0.02 (0.01-0.08) K/mm3 Manual Slide Review Abnormal smear PT 17.2 H (9.5-12.1) SECONDS INR 1.59 Sodium 138 (136-145) mEq/L Potassium 3.5 (3.5-5.1) mEq/L Chloride 103 (98-107) mEq/L Carbon Dioxide 26 (21-32) mEq/L Anion Gap 12.5 (5-15) BUN 15 (7-18) mg/dL Creatinine 0.9 (0.7-1.3) mg/dL Est Cr Clr Drug Dosing 75.44 mL/min Estimated GFR (MDRD) > 60 (>60) mL/min BUN/Creatinine Ratio 16.7 (14-18) Glucose 139 H (83-115) mg/dL POC Glucose (83-110) mg/dL Calcium 8.7 (8.5-10.1) mg/dL Magnesium 1.7 L (1.8-2.4) mg/dl Total Bilirubin 0.6 (0.2-1.0) mg/dL AST 19 (15-37) U/L ALT 19 (16-63) U/L Alkaline Phosphatase 48 (46-116) U/L Total Protein 6.5 (6.4-8.2) g/dl Albumin 2.2 L (3.4-5.0) g/dl Globulin 4.3 gm/dL Albumin/Globulin Ratio 0.5 L (1-2) [place] Results Last 24 Hours: Microbiology 08/04/18 15:54 Aerobic Blood Culture - Preliminary Blood - Venous - Lab Draw NO GROWTH AFTER 2 DAYS Anaerobic Blood Culture - Preliminary NO GROWTH AFTER 2 DAYS 08/04/18 15:43 Aerobic Blood Culture - Preliminary Blood - Venous NO GROWTH AFTER 2 DAYS Anaerobic Blood Culture - Preliminary NO GROWTH AFTER 2 DAYS Med Orders - Current: Current Medications Acetaminophen (Tylenol) 650 mg PO Q4H PRN PRN Reason: Pain (Mild 1-3)/fever Last Admin: 08/07/18 09:23 Dose: 650 mg Albuterol (Proventil Neb Soln) 2.5 mg NEB Q2H PRN PRN Reason: Shortness Of Breath/wheezing Albuterol/Ipratropium (Duoneb 3.0-0.5 Mg/3 Ml) 3 ml NEB Q4H PRN PRN Reason: Shortness Of Breath/wheezing Amlodipine Besylate (Norvasc) 10 mg PO DAILY [facility] Last Admin: 08/07/18 09:18 Dose: 10 mg Azithromycin (Zithromax) 250 mg PO 1600 [facility] Bisacodyl (Dulcolax) 5 mg PO DAILY PRN PRN Reason: Constipation Dextrose/Water (Dextrose 50% In Water) 50 ml IV ASDIRECTED PRN PRN Reason: Hypoglycemia Ceftriaxone Sodium 2 gm/ (Sodium Chloride) 100 mls @ 200 mls/hr IV Q24H [facility] Last Admin: 08/06/18 17:29 Dose: 200 mls/hr Magnesium Sulfate 2 gm/ Premix 50 mls @ 25 mls/hr IV ONETIME ONE Stop: 08/07/18 12:59 Insulin Glargine (Lantus) 10 unit SUBCUT DAILY [facility] Last Admin: 08/07/18 09:15 Dose: 10 units Insulin Human Lispro (Humalog) 0 unit SUBCUT QIDACANDBED [facility]; Protocol Last Admin: 08/07/18 09:14 Dose: 1 unit Magnesium Oxide (Magnesium Oxide) 400 mg PO BID [facility] Last Admin: 08/07/18 09:18 Dose: 400 mg Ondansetron HCl (Zofran Odt) 4 mg PO Q4H PRN PRN Reason: nausea, able to take PO Ondansetron HCl (Zofran) 4 mg IV Q4H PRN PRN Reason: Nausea/Vomiting Rosuvastatin Calcium (Crestor) 20 mg PO BEDTIME [facility] Last Admin: 08/06/18 20:39 Dose: 20 mg Tamsulosin HCl (Flomax) 0.4 mg PO DAILY [facility] Last Admin: 08/07/18 09:20 Dose: 0.4 mg Warfarin Sodium (Coumadin) 2.5 mg PO SuMoTuWeFrSa@1800 [facility] Last Admin: 08/06/18 17:21 Dose: 2.5 mg Warfarin Sodium (Coumadin) 5 mg PO Th@1800 [facility] Warfarin Sodium (Pharmacy To Dose - Warfarin) 0 dose PO ASDIRECTED PRN PRN Reason: RX TO DOSE WARFARIN Discontinued Medications Dextrose/Water (Dextrose 50% In Water) 50 ml IVPUSH ASDIRECTED PRN PRN Reason: Hypoglycemia Magnesium Sulfate 2 gm/ Premix 50 mls @ 50 mls/hr IV ONETIME ONE Stop: 08/04/18 17:32 Last Admin: 08/04/18 17:18 Dose: 50 mls/hr Azithromycin 500 mg/ Sodium (Chloride) 250 mls @ 250 mls/hr IV ONETIME ONE Stop: 08/04/18 17:32 Last Admin: 08/04/18 17:53 Dose: 250 mls/hr Ceftriaxone Sodium 2 gm/ (Sodium Chloride) 100 mls @ 200 mls/hr IV ONETIME STA Stop: 08/04/18 17:40 Last Admin: 08/04/18 17:19 Dose: 200 mls/hr Sodium Chloride (Normal Saline) 1,000 mls @ 999 mls/hr IV ONETIME ONE Stop: 08/04/18 18:21 Last Admin: 08/04/18 17:30 Dose: 999 mls/hr Norepinephrine Bitartrate 4 mg (/ Dextrose/Water) 250 mls @ 37.5 mls/hr IV TITRATE [facility]; Protocol Phenylephrine HCl 10 mg/ (Sodium Chloride) 100 mls @ 60 mls/hr IV TITRATE [facility]; Protocol Sodium Chloride (Normal Saline) 1,000 mls @ 500 mls/hr IV ONETIME ONE Stop: 08/04/18 20:58 Last Infusion: 08/04/18 20:39 Dose: 50 mls/hr Azithromycin 250 mg/ Sodium (Chloride) 250 mls @ 250 mls/hr IV Q24H [facility] Last Admin: 08/06/18 16:27 Dose: 250 mls/hr Potassium Chloride 10 meq/ (Premix) 100 mls @ 100 mls/hr IV Q1H [facility] Stop: 08/05/18 01:14 Last Admin: 08/05/18 01:02 Dose: 100 mls/hr Sodium Chloride (Normal Saline) 1,000 mls @ 50 mls/hr IV ASDIRECTED [facility] Last Admin: 08/05/18 11:10 Dose: 50 mls/hr Potassium Chloride 10 meq/ (Premix) 100 mls @ 100 mls/hr IV Q1H [facility] Stop: 08/05/18 12:59 Last Admin: 08/05/18 13:24 Dose: 100 mls/hr Metoprolol Tartrate (Lopressor) 5 mg IVPUSH ONETIME ONE Stop: 08/04/18 15:19 Last Admin: 08/04/18 15:20 Dose: 5 mg Metoprolol Tartrate (Lopressor) Confirm Administered Dose 5 mg .ROUTE .STK-MED ONE Stop: 08/04/18 15:20 Last Admin: 08/04/18 15:33 Dose: Not Given - Exam Quality Assessment: Supplemental Oxygen General: Alert, Oriented HEENT: Pupils Equal, Pupils Reactive Neck: Supple Lungs: Normal Respiratory Effort, Rales Cardiovascular: Regular Rate (Mild tachycardia in the evening.), Regular Rhythm GI/Abdominal Exam: Normal Bowel Sounds, No Distention Extremities: Normal Inspection, Pedal Edema Skin: Warm Neurological: No New Focal Deficit Psy/Mental Status: Alert, Normal Affect, Normal Mood - Problem List & Annotations (1) Respiratory failure with hypoxia SNOMED Code(s): 53440160887212672 Code(s): J96.91 - RESPIRATORY FAILURE, UNSPECIFIED WITH HYPOXIA Status: Acute Current Visit: Yes (2) Pneumonia SNOMED Code(s): 259737616 Code(s): J18.9 - PNEUMONIA, UNSPECIFIED ORGANISM Status: Acute Current Visit: Yes (3) Sepsis SNOMED Code(s): 16907879 Code(s): A41.9 - SEPSIS, UNSPECIFIED ORGANISM Status: Acute Current Visit : Yes (4) Urinary retention SNOMED Code(s): 266137040 Code(s): R33.9 - RETENTION OF URINE, UNSPECIFIED Status: Acute Current Visit: Yes - Problem List Review Problem List Initiated/Reviewed/Updated: Yes - My Orders Last 24 Hours: My Active Orders 08/06/18 20:07 Communication Order [RC] ASDIRECTED OT Evaluation and Treatment [CONS] Routine PT Evaluation and Treatment [CONS] Routine Sequential Compression Device [OM.PC] Routine 08/07/18 07:00 Dextrose 50% in Water 50 ml IV ASDIRECTED PRN 08/07/18 10:46 Warfarin Pharmacy to Dose [Pharmacy to Dose - Warfarin] 0 dose PO ASDIRECTED PRN 08/07/18 11:00 Magnesium Sulfate/Water [Magnesium Sulfate in Water Premix] 2 gm Premix Bag 1 bag IV ONETIME 08/07/18 16:00 Azithromycin [Zithromax] 250 mg PO 1600 08/08/18 05:11 INR,PT,PROTHROMBIN TIME [COAG] AM 08/09/18 05:11 INR,PT,PROTHROMBIN TIME [COAG] AM 08/10/18 05:11 INR,PT,PROTHROMBIN TIME [COAG] AM 08/10/18 18:00 Warfarin [Coumadin] 5 mg PO Th@1800 08/11/18 05:11 INR,PT,PROTHROMBIN TIME [COAG] AM - Plan Plan:: Respiratory failure with hypoxemia * Patient be placed on BiPAP overnight. 08/04 to start with respirator therapy to titrate. Decreased need for oxygenation. Patient generally improved. * This is likely multifactorial to include fluid overload and secondary to his pneumonia. * IV fluids will be dropped to KVO * Urinary catheter for strict fluid assessment- patient will have his catheter removed today and we will follow his urinary output closely. * Patient was counseled and he would like to be intubated if necessary. * ABG: PH 7.36, PCO2 46.6, PO2 76.0, HCO3 25.7 on oxygen flow rate of 5 L on BiPAP Sepsis secondary to Pneumonia, right lower lobe * Patient was started on Rocephin 2 g IV daily and given azithromycin 500 mg IV in the emergency room and will be continued on 250 mg IV daily * Fluid resuscitation in the emergency room. * Blood cultures obtained. * Urine for strep antigen and Legionella will be obtained. * Respiratory viral panel. * Influenza was negative. Nonsustained ventricular tachycardia * Monitor patient in the ICU. * No subsequent ventricular tachycardia * transfer to [facility] status with telemetry Diabetes mellitus * Hold metformin while in the hospital * Start basal insulin with Lantus 10 mg and sliding scale insulin * Hemoglobin A1c of 7.10. Total cholesterol 79, LDL 24, HDL of 48, triglycerides of 102 History of CVA and memory loss * Patient is on Coumadin and it is subtherapeutic. * Continue on current dose of Coumadin because it will likely increase with antibiotics. * Follow INR daily. Hypomagnesemia * Dropped down to 1.7. Start him on by mouth magnesium * We'll recheck in the morning. CODE STATUS: Full code Length of stay likely 4 days
--- NOTE | 2018-08-07 11:15 | PCM.PN ---
- General Info Date of Service: 08/07/18 Admission Dx/Problem (Free Text): Admission Diagnosis/Problem Admission Diagnosis/Problem Sepsis Subjective Update: June 05, 2018 Patient tolerated his BiPAP overnight and has been weaned down to 3 L of FiO2. Patient was also afebrile. He states he is feeling better and is already asking to leave. His will be in around 4 PM this evening from [place]. June 06, 2018 Patient did well overnight. He continued to tolerate his BiPAP. He continued to wean off of his FiO2. I spoke with his . June 07, 2018 Patient was transferred to the floor overnight. He is doing well, but that BiPAP is causing a little abrasion on the bridge of his nose. He is down to 2 L FiO2. He is still having significant amount of residual on bladder scan. We restarted his Flomax initially. Functional Status: Reports: Pain Controlled - Review of Systems General: Reports: No Symptoms. Denies: Fever HEENT: Reports: No Symptoms Pulmonary: Reports: Cough. Denies: Shortness of Breath Cardiovascular: Reports: No Symptoms. Denies: Chest Pain, Dyspnea on Exertion Genitourinary: Reports: Frequency, Retention Musculoskeletal: Reports: No Symptoms Psychiatric: Reports: No Symptoms. Denies: Confusion, Depression - Patient Data Vitals - Most Recent: Last Vital Signs Temp 98.2 F 08/07/18 09:07 Pulse 92 08/07/18 09:07 Resp 18 08/07/18 09:07 BP 112/76 08/07/18 09:18 Pulse Ox 94 L 08/07/18 09:52 Weight - Most Recent: 242 lb 4.8 oz I&O - Last 24 Hours: Intake & Output 08/06/18 08/07/18 08/07/18 22:59 06:59 14:59 Intake Total 1430 120 360 Output Total 75 150 125 Balance 1355 -30 235 Lab Results Last 24 Hours: Laboratory Results - last 24 hr 08/06/18 08/06/18 08/06/18 Range/Units 11:56 17:15 20:46 WBC (4.23-9.07) K/mm3 RBC (4.63-6.08) M/mm3 Hgb (13.7-17.5) gm/L Hct (40.1-51.0) % MCV (79.0-92.2) fl MCH (25.7-32.2) pg MCHC (32.2-35.5) g/dl RDW Std Deviation (35.1-43.9) fL Plt Count (163-337) K/mm3 MPV (9.4-12.3) fl Neut % (Auto) (34.0-67.9) % Lymph % (Auto) (21.8-53.1) % Garza % (Auto) (5.3-12.2) % Eos % (Auto) (0.8-7.0) Baso % (Auto) (0.1-1.2) % Neut # (Auto) (1.78-5.38) K/mm3 Lymph # (Auto) (1.32-3.57) K/mm3 Garza # (Auto) (0.30-0.82) K/mm3 Eos # (Auto) (0.04-0.54) K/mm3 Baso # (Auto) (0.01-0.08) K/mm3 Manual Slide Review PT (9.5-12.1) SECONDS INR Sodium (136-145) mEq/L Potassium (3.5-5.1) mEq/L Chloride (98-107) mEq/L Carbon Dioxide (21-32) mEq/L Anion Gap (5-15) BUN (7-18) mg/dL Creatinine (0.7-1.3) mg/dL Est Cr Clr Drug Dosing mL/min Estimated GFR (MDRD) (>60) mL/min BUN/Creatinine Ratio (14-18) Glucose (83-115) mg/dL POC Glucose 181 H 171 H 134 H (83-110) mg/dL Calcium (8.5-10.1) mg/dL Magnesium (1.8-2.4) mg/dl Total Bilirubin (0.2-1.0) mg/dL AST (15-37) U/L ALT (16-63) U/L Alkaline Phosphatase (46-116) U/L Total Protein (6.4-8.2) g/dl Albumin (3.4-5.0) g/dl Globulin gm/dL Albumin/Globulin Ratio (1-2) 08/07/18 08/07/18 08/07/18 Range/Units 05:40 05:40 05:40 WBC 10.81 H (4.23-9.07) K/mm3 RBC 4.19 L (4.63-6.08) M/mm3 Hgb 12.6 L (13.7-17.5) gm/L Hct 36.8 L (40.1-51.0) % MCV 87.8 (79.0-92.2) fl MCH 30.1 (25.7-32.2) pg MCHC 34.2 (32.2-35.5) g/dl RDW Std Deviation 42.6 (35.1-43.9) fL Plt Count 179 (163-337) K/mm3 MPV 10.6 (9.4-12.3) fl Neut % (Auto) 59.7 (34.0-67.9) % Lymph % (Auto) 24.6 (21.8-53.1) % Garza % (Auto) 12.4 H (5.3-12.2) % Eos % (Auto) 3.1 (0.8-7.0) Baso % (Auto) 0.2 (0.1-1.2) % Neut # (Auto) 6.46 H (1.78-5.38) K/mm3 Lymph # (Auto) 2.66 (1.32-3.57) K/mm3 Garza # (Auto) 1.34 H (0.30-0.82) K/mm3 Eos # (Auto) 0.33 (0.04-0.54) K/mm3 Baso # (Auto) 0.02 (0.01-0.08) K/mm3 Manual Slide Review Abnormal smear PT 17.2 H (9.5-12.1) SECONDS INR 1.59 Sodium 138 (136-145) mEq/L Potassium 3.5 (3.5-5.1) mEq/L Chloride 103 (98-107) mEq/L Carbon Dioxide 26 (21-32) mEq/L Anion Gap 12.5 (5-15) BUN 15 (7-18) mg/dL Creatinine 0.9 (0.7-1.3) mg/dL Est Cr Clr Drug Dosing 75.44 mL/min Estimated GFR (MDRD) > 60 (>60) mL/min BUN/Creatinine Ratio 16.7 (14-18) Glucose 139 H (83-115) mg/dL POC Glucose (83-110) mg/dL Calcium 8.7 (8.5-10.1) mg/dL Magnesium 1.7 L (1.8-2.4) mg/dl Total Bilirubin 0.6 (0.2-1.0) mg/dL AST 19 (15-37) U/L ALT 19 (16-63) U/L Alkaline Phosphatase 48 (46-116) U/L Total Protein 6.5 (6.4-8.2) g/dl Albumin 2.2 L (3.4-5.0) g/dl Globulin 4.3 gm/dL Albumin/Globulin Ratio 0.5 L (1-2) Néstor Results Last 24 Hours: Microbiology 08/04/18 15:54 Aerobic Blood Culture - Preliminary Blood - Venous - Lab Draw NO GROWTH AFTER 2 DAYS Anaerobic Blood Culture - Preliminary NO GROWTH AFTER 2 DAYS 08/04/18 15:43 Aerobic Blood Culture - Preliminary Blood - Venous NO GROWTH AFTER 2 DAYS Anaerobic Blood Culture - Preliminary NO GROWTH AFTER 2 DAYS Med Orders - Current: Current Medications Acetaminophen (Tylenol) 650 mg PO Q4H PRN PRN Reason: Pain (Mild 1-3)/fever Last Admin: 08/07/18 09:23 Dose: 650 mg Albuterol (Proventil Neb Soln) 2.5 mg NEB Q2H PRN PRN Reason: Shortness Of Breath/wheezing Albuterol/Ipratropium (Duoneb 3.0-0.5 Mg/3 Ml) 3 ml NEB Q4H PRN PRN Reason: Shortness Of Breath/wheezing Amlodipine Besylate (Norvasc) 10 mg PO DAILY [facility] Last Admin: 08/07/18 09:18 Dose: 10 mg Azithromycin (Zithromax) 250 mg PO 1600 [facility] Bisacodyl (Dulcolax) 5 mg PO DAILY PRN PRN Reason: Constipation Dextrose/Water (Dextrose 50% In Water) 50 ml IV ASDIRECTED PRN PRN Reason: Hypoglycemia Ceftriaxone Sodium 2 gm/ (Sodium Chloride) 100 mls @ 200 mls/hr IV Q24H [facility] Last Admin: 08/06/18 17:29 Dose: 200 mls/hr Magnesium Sulfate 2 gm/ Premix 50 mls @ 25 mls/hr IV ONETIME ONE Stop: 08/07/18 12:59 Insulin Glargine (Lantus) 10 unit SUBCUT DAILY [facility] Last Admin: 08/07/18 09:15 Dose: 10 units Insulin Human Lispro (Humalog) 0 unit SUBCUT QIDACANDBED [facility]; Protocol Last Admin: 08/07/18 09:14 Dose: 1 unit Magnesium Oxide (Magnesium Oxide) 400 mg PO BID [facility] Last Admin: 08/07/18 09:18 Dose: 400 mg Ondansetron HCl (Zofran Odt) 4 mg PO Q4H PRN PRN Reason: nausea, able to take PO Ondansetron HCl (Zofran) 4 mg IV Q4H PRN PRN Reason: Nausea/Vomiting Rosuvastatin Calcium (Crestor) 20 mg PO BEDTIME [facility] Last Admin: 08/06/18 20:39 Dose: 20 mg Tamsulosin HCl (Flomax) 0.4 mg PO DAILY [facility] Last Admin: 08/07/18 09:20 Dose: 0.4 mg Warfarin Sodium (Coumadin) 2.5 mg PO [id number]@1800 [facility] Last Admin: 08/06/18 17:21 Dose: 2.5 mg Warfarin Sodium (Coumadin) 5 mg PO Th@1800 [facility] Warfarin Sodium (Pharmacy To Dose - Warfarin) 0 dose PO ASDIRECTED PRN PRN Reason: RX TO DOSE WARFARIN Discontinued Medications Dextrose/Water (Dextrose 50% In Water) 50 ml IVPUSH ASDIRECTED PRN PRN Reason: Hypoglycemia Magnesium Sulfate 2 gm/ Premix 50 mls @ 50 mls/hr IV ONETIME ONE Stop: 08/04/18 17:32 Last Admin: 08/04/18 17:18 Dose: 50 mls/hr Azithromycin 500 mg/ Sodium (Chloride) 250 mls @ 250 mls/hr IV ONETIME ONE Stop: 08/04/18 17:32 Last Admin: 08/04/18 17:53 Dose: 250 mls/hr Ceftriaxone Sodium 2 gm/ (Sodium Chloride) 100 mls @ 200 mls/hr IV ONETIME STA Stop: 08/04/18 17:40 Last Admin: 08/04/18 17:19 Dose: 200 mls/hr Sodium Chloride (Normal Saline) 1,000 mls @ 999 mls/hr IV ONETIME ONE Stop: 08/04/18 18:21 Last Admin: 08/04/18 17:30 Dose: 999 mls/hr Norepinephrine Bitartrate 4 mg (/ Dextrose/Water) 250 mls @ 37.5 mls/hr IV TITRATE [facility]; Protocol Phenylephrine HCl 10 mg/ (Sodium Chloride) 100 mls @ 60 mls/hr IV TITRATE [facility]; Protocol Sodium Chloride (Normal Saline) 1,000 mls @ 500 mls/hr IV ONETIME ONE Stop: 08/04/18 20:58 Last Infusion: 08/04/18 20:39 Dose: 50 mls/hr Azithromycin 250 mg/ Sodium (Chloride) 250 mls @ 250 mls/hr IV Q24H [facility] Last Admin: 08/06/18 16:27 Dose: 250 mls/hr Potassium Chloride 10 meq/ (Premix) 100 mls @ 100 mls/hr IV Q1H [facility] Stop: 08/05/18 01:14 Last Admin: 08/05/18 01:02 Dose: 100 mls/hr Sodium Chloride (Normal Saline) 1,000 mls @ 50 mls/hr IV ASDIRECTED [facility] Last Admin: 08/05/18 11:10 Dose: 50 mls/hr Potassium Chloride 10 meq/ (Premix) 100 mls @ 100 mls/hr IV Q1H [facility] Stop: 08/05/18 12:59 Last Admin: 08/05/18 13:24 Dose: 100 mls/hr Metoprolol Tartrate (Lopressor) 5 mg IVPUSH ONETIME ONE Stop: 08/04/18 15:19 Last Admin: 08/04/18 15:20 Dose: 5 mg Metoprolol Tartrate (Lopressor) Confirm Administered Dose 5 mg .ROUTE .STK-MED ONE Stop: 08/04/18 15:20 Last Admin: 08/04/18 15:33 Dose: Not Given - Exam Quality Assessment: Supplemental Oxygen General: Alert, Oriented HEENT: Pupils Equal, Pupils Reactive, EOMI Neck: Supple Lungs: Normal Respiratory Effort, Rales Cardiovascular: Regular Rate, Regular Rhythm GI/Abdominal Exam: Normal Bowel Sounds, Soft, Non-Tender, No Distention (Male) Exam: Other (Enlarged boggy prostate without mass.) Back Exam: Normal Inspection Extremities: Normal Inspection, Pedal Edema Skin: Warm, Dry, Intact Psy/Mental Status: Alert, Normal Affect, Normal Mood - Problem List & Annotations (1) Respiratory failure with hypoxia SNOMED Code(s): 44039341310586532 Code(s): J96.91 - RESPIRATORY FAILURE, UNSPECIFIED WITH HYPOXIA Status: Acute Current Visit: Yes (2) Pneumonia SNOMED Code(s): 453920641 Code(s): J18.9 - PNEUMONIA, UNSPECIFIED ORGANISM Status: Acute Current Visit: Yes (3) Sepsis SNOMED Code(s): 83819061 Code(s): A41.9 - SEPSIS, UNSPECIFIED ORGANISM Status: Acute Current Visit : Yes (4) Urinary retention SNOMED Code(s): 891031006 Code(s): R33.9 - RETENTION OF URINE, UNSPECIFIED Status: Acute Current Visit: Yes - Problem List Review Problem List Initiated/Reviewed/Updated: Yes - My Orders Last 24 Hours: My Active Orders 08/06/18 20:07 Communication Order [RC] ASDIRECTED OT Evaluation and Treatment [CONS] Routine PT Evaluation and Treatment [CONS] Routine Sequential Compression Device [OM.PC] Routine 08/07/18 07:00 Dextrose 50% in Water 50 ml IV ASDIRECTED PRN 08/07/18 10:46 Warfarin Pharmacy to Dose [Pharmacy to Dose - Warfarin] 0 dose PO ASDIRECTED PRN 08/07/18 11:00 Magnesium Sulfate/Water [Magnesium Sulfate in Water Premix] 2 gm Premix Bag 1 bag IV ONETIME 08/07/18 16:00 Azithromycin [Zithromax] 250 mg PO 1600 08/08/18 05:11 INR,PT,PROTHROMBIN TIME [COAG] AM 08/09/18 05:11 INR,PT,PROTHROMBIN TIME [COAG] AM 08/10/18 05:11 INR,PT,PROTHROMBIN TIME [COAG] AM 08/10/18 18:00 Warfarin [Coumadin] 5 mg PO Th@1800 08/11/18 05:11 INR,PT,PROTHROMBIN TIME [COAG] AM - Plan Plan:: Respiratory failure with hypoxemia - resolved * Patient be placed on BiPAP overnight. 08/04 to start with respirator therapy to titrate. Decreased need for oxygenation. Patient generally improved. * This is likely multifactorial to include fluid overload and secondary to his pneumonia. * Saline lock * Patient was counseled and he would like to be intubated if necessary. * ABG: PH 7.36, PCO2 46.6, PO2 76.0, HCO3 25.7 on oxygen flow rate of 5 L on BiPAP Sepsis secondary to Pneumonia, right lower lobe * Patient was started on Rocephin 2 g IV daily and given azithromycin 500 mg IV in the emergency room and will be continued on 250 mg IV daily * Fluid resuscitation in the emergency room. * Blood cultures obtained. Preliminary negative * Urine for strep antigen and Legionella will be obtained. * Respiratory viral panel. * Influenza was negative. Nonsustained ventricular tachycardia * No subsequent ventricular tachycardia * MedSurg status with telemetry Diabetes mellitus * Hold metformin while in the hospital * Start basal insulin with Lantus 10 mg and sliding scale insulin * Hemoglobin A1c of 7.10. Total cholesterol 79, LDL 24, HDL of 48, triglycerides of 102 * Decreased rosuvastatin to 10 mg daily. History of CVA and memory loss * Patient is on Coumadin and it is subtherapeutic. * Pharmacy to dose * Follow INR daily. Hypomagnesemia * Dropped down to 1.7. Continue on by mouth magnesium and replace magnesium 2 g IV * We'll recheck in the morning. CODE STATUS: Full code Length of stay likely 4 days
--- NOTE | 2018-08-07 13:21 | CR ---
Left foot: Four views of left foot were obtained. Comparison: No previous study. Bony structures are osteopenic. Small plantar spur is noted. Slightly prominent soft tissue is seen within the dorsum of the foot distally, please correlate if this represents soft tissue swelling or other soft tissue abnormality. No discrete fracture or other bony abnormality is seen. Impression: 1. Soft tissue prominence within the distal aspect of the dorsal foot. 2. Nothing acute is appreciated. Study slightly limited due to osteopenia. Diagnostic code #2
[2018-08-07] MEDS: Azithromycin 250 MG Tab PO SCH (16:00)
[2018-08-07] MEDS: cefTRIAXone 2 GM in Sodium Chloride 0.9% 100 ML IV SCH (16:00)
[2018-08-07] MEDS ORDERED: Warfarin 5 MG Tab PO SCH (18:00)
[2018-08-07] MEDS ORDERED: Rosuvastatin 10 MG Tab PO SCH (21:00)
[2018-08-08] MEDS: Insulin Lispro 100 Units/ML 3 ML Vial SUBCUT SCH (08:49)
[2018-08-08] MEDS: Insulin Glarg,Human.Rec.Analog 100 UNIT/ML ML SUBCUT SCH (08:50)
[2018-08-08] MEDS: Magnesium Oxide 400 MG Tab PO SCH (08:52)
[2018-08-08] MEDS: Tamsulosin 0.4 MG Cap.ER PO SCH (08:52)
[2018-08-08] MEDS: amLODIPine 10 MG Tab PO SCH (08:52)
--- NOTE | 2018-08-08 10:55 | PCM.DCSUM1 ---
Discharge Summary - Hospital Course HPI Initial Comments: 77 or on male was brought to the emergency room by a couple of friends because over the last 24 hours became weaker. He is having difficulty even walking down to the basement. When he initially presented to the emergency room a CODE BLUE was called because of a nonsustained ventricular tachycardia on the monitor. Patient had a palpable pulse in with ventricular tachycardia. Patient was given Lopressor 5 mg IV. This did result his ventricular tachycardia. Patient is a poor historian and although his was on the phone wall I interviewed him she was not there over the last 2 days. His friends that were with him were not available to be questioned. Patient is visiting from [place] and became progressively more tired and weak. He was unable to get up and walk on his own today due to extreme weakness. There's been no chest pain, dyspnea, fever, vomiting, hematochezia, melena. He does have chronic diarrhea for the last 20 years. Patient is on metformin for his diabetes. Patient has a history of multiple small CVAs. He was apparently placed on warfarin for this indication. Past medical history includes hypertension, hyperlipidemia, diabetes, sleep apnea in which he uses a CPAP, BPH, GERD, and osteoarthritis. Past surgical history is significant for Gabbie fundoplication An emergency room patient was found to have a white count of 18,000 with 4% bandemia. Chest x-ray was suggestive of a right lower lobe infiltrate. Patient had a fever of 101.7 so he was given 2 g Rocephin and 500 mg of IV azithromycin. They obtained blood cultures prior to antibiotics. He was given 1 L normal saline bolus and transferred to the floor at 500 mL per hour. He did have 400 mL of urine on catheter. Lactic acid initially was 2.0 and went down to 1.7. Troponin was negative 2. Now in the ICU blood pressure is up. 131 systolic. Oxygen levels are maintained around 90-91% on 6 L O2 per nasal cannula. He is talking in full sentences without difficulty but coughing frequently. Brief History: June 05, 2018. Patient tolerated his BiPAP overnight and has been weaned down to 3 L of FiO2. Patient was also afebrile. He states he is feeling better and is already asking to leave. His will be in around 4 PM this evening from [place]. June 06, 2018. Patient did well overnight. He continued to tolerate his BiPAP. He continued to wean off of his FiO2. I spoke with his . June 07, 2018. Patient was transferred to the floor overnight. He is doing well, but that BiPAP is causing a little abrasion on the bridge of his nose. He is down to 2 L FiO2. He is still having significant amount of residual on bladder scan. We restarted his Flomax initially. Diagnosis: Stroke: No - Discharge Data Discharge Date: 08/08/18 Discharge Disposition: Home, Self-Care 01 Condition: Fair - Discharge Diagnosis/Problem(s) (1) Respiratory failure with hypoxia SNOMED Code(s): 10469328399949263 ICD Code: J96.91 - RESPIRATORY FAILURE, UNSPECIFIED WITH HYPOXIA Status: Acute Current Visit: Yes (2) Pneumonia SNOMED Code(s): 183397696 ICD Code: J18.9 - PNEUMONIA, UNSPECIFIED ORGANISM Status: Acute Current Visit: Yes (3) Sepsis SNOMED Code(s): 17408805 ICD Code: A41.9 - SEPSIS, UNSPECIFIED ORGANISM Status: Acute Current Visit: Yes (4) Urinary retention SNOMED Code(s): 775449034 ICD Code: R33.9 - RETENTION OF URINE, UNSPECIFIED Status: Acute Current Visit: Yes - Patient Summary/Data Consults: Consultations 08/04/18 20:56 Consult to Diabetic Nurse Specialist [CONS] Routine Respiratory Care Assess and Treatment [CONS] Routine 08/06/18 20:07 OT Evaluation and Treatment [CONS] Routine PT Evaluation and Treatment [CONS] Routine Recommended Follow-up Testing/Procedures: With PCP 2-3 days - Patient Instructions Diet: Heart Healthy Diet Activity: As Tolerated Driving: Do Not Drive Showering/Bathing: May Shower Other/Special Instructions: Follow up with PCP in 2-3 days. - Discharge Plan *PRESCRIPTION DRUG MONITORING PROGRAM REVIEWED*: Not Applicable *COPY OF PRESCRIPTION DRUG MONITORING REPORT IN PATIENT LEONCIO: Not Applicable Prescriptions/Med Rec: Albuterol [Proventil Neb Soln] 2.5 mg NEB Q2H PRN #100 neb PRN Reason: Shortness Of Breath/wheezing Albuterol/Ipratropium [DuoNeb 3.0-0.5 MG/3 ML] 3 ml .XX QID #100 neb Cefdinir [Omnicef] 300 mg PO BID #8 cap Home Medications: Home Meds Cholecalciferol (Vitamin D3) [Vitamin D3] 5,000 intnl unit PO BEDTIME 08/04/18 [ History] Comprehensive Gut Health 1 tab PO MOTH 08/04/18 [History] Fish Oil/DHA/EPA [Fish Oil 1,200 MG] 1,200 mg PO BID 08/04/18 [History] Glucosamine HCl [Glucosamine] 1,500 mg PO DAILY 08/04/18 [History] Lisinopril/Hydrochlorothiazide [Lisinopril-Hctz 20-12.5 mg Tab] 12.5 - 20 mg PO DAILY 08/04/18 [History] Methylsulfonylmethane [MSM] 1,500 mg PO DAILY 08/04/18 [History] Multivits,Ca,Min/Iron/FA/Lycop [Centrum Men's Tablet] 1 tab PO BEDTIME 08/04/18 [History] Tamsulosin [Flomax] 0.4 mg PO DAILY 08/04/18 [History] Warfarin [Coumadin] 2.5 mg PO SUMOTUWEFRSA 08/04/18 [History] Warfarin [Coumadin] 5 mg PO TH 08/04/18 [History] amLODIPine Besylate [Amlodipine Besylate] 10 mg PO DAILY 08/04/18 [History] atorvaSTATin Calcium [Atorvastatin Calcium] 80 mg PO BEDTIME 08/04/18 [History] metFORMIN [Glucophage] 500 mg PO BID 08/04/18 [History] Albuterol [Proventil Neb Soln] 2.5 mg NEB Q2H PRN #100 neb 08/08/18 [Rx] Albuterol/Ipratropium [DuoNeb 3.0-0.5 MG/3 ML] 3 ml .XX QID #100 neb 08/08/18 [ Rx] Cefdinir [Omnicef] 300 mg PO BID #8 cap 08/08/18 [Rx] Pharmacy to Dose - Warfarin 0 dose PO ASDIRECTED PRN each 08/08/18 [Rx] Oxygen Therapy Mode: Room Air Patient Handouts: Antibiotic Medicine, Adult, [id number], Acute Urinary Retention, Male, [id number] Forms: ED Department Discharge Referrals: PCP,Not In Area [Primary Care Provider] - (Please schedule an appointment with your primary care provider to follow-up on your hospital stay. ) - Discharge Summary/Plan Comment DC Time >30 min.: Yes Discharge Summary/Plan Comment: Respiratory failure with hypoxemia - resolved * Patient be placed on BiPAP overnight. 08/04 to start with respirator therapy to titrate. Decreased need for oxygenation. Patient generally improved. * This was likely multifactorial to include fluid overload and secondary to his pneumonia. * Patient was counseled and he would like to be intubated if necessary. Sepsis secondary to Pneumonia, right lower lobe * Patient was started on Rocephin 2 g IV daily and given azithromycin 500 mg IV in the emergency room and will be continued on 250 mg IV daily * Fluid resuscitation in the emergency room. * Blood cultures obtained. Preliminary negative * Urine for strep antigen and Legionella pending. * Respiratory viral panel pending. * Influenza was negative. * Discharge home on cefepime and Zithromax. Nonsustained ventricular tachycardia * No significant issues during hospitalization Diabetes mellitus * Go home on home meds * Hemoglobin A1c of 7.10. Total cholesterol 79, LDL 24, HDL of 48, triglycerides of 102 * Consider decreasing statin dose as OP. History of CVA and memory loss * Patient is on Coumadin and it is subtherapeutic. * Follow up with PCP for INR recheck - General Info Date of Service: 08/08/18 Admission Dx/Problem (Free Text: Admission Diagnosis/Problem Admission Diagnosis/Problem Sepsis Subjective Update: June 05, 2018 Patient tolerated his BiPAP overnight and has been weaned down to 3 L of FiO2. Patient was also afebrile. He states he is feeling better and is already asking to leave. His will be in around 4 PM this evening from [place]. June 06, 2018 Patient did well overnight. He continued to tolerate his BiPAP. He continued to wean off of his FiO2. I spoke with his . June 07, 2018 Patient was transferred to the floor overnight. He is doing well, but that BiPAP is causing a little abrasion on the bridge of his nose. He is down to 2 L FiO2. He is still having significant amount of residual on bladder scan. We restarted his Flomax initially. June 08, 2018 Patient has been weaned off of his O2. He sats in the low 90s both with ambulation and at rest. This appears to be where he is at home. He continues to have urinary retention issues, but this also is not new and not exacerbated. Patient was told many years ago that he needed a TURP, but refused. Patient is requesting to go home. - Review of Systems General: Reports: No Symptoms. Denies: Fever, Weakness HEENT: Reports: No Symptoms Pulmonary: Reports: No Symptoms. Denies: Shortness of Breath, Cough Cardiovascular: Reports: Edema. Denies: Chest Pain, Dyspnea on Exertion Gastrointestinal: Reports: No Symptoms - Patient Data Vitals - Most Recent: Last Vital Signs Temp 97.5 F 08/08/18 08:24 Pulse 87 08/08/18 08:24 Resp 20 08/08/18 08:24 BP 105/69 08/08/18 08:52 Pulse Ox 90 L 08/08/18 08:24 Weight - Most Recent: 238 lb 3.2 oz I&O - Last 24 hours: Intake & Output 08/07/18 08/08/18 08/08/18 22:59 06:59 14:59 Intake Total 1170 700 Output Total 950 750 Balance 220 -50 Lab Results - Last 24 hrs: Laboratory Results - last 24 hr 08/04/18 08/07/18 08/07/18 Range/Units 20:58 06:58 11:33 WBC (4.23-9.07) K/mm3 RBC (4.63-6.08) M/mm3 Hgb (13.7-17.5) gm/L Hct (40.1-51.0) % MCV (79.0-92.2) fl MCH (25.7-32.2) pg MCHC (32.2-35.5) g/dl RDW Std Deviation (35.1-43.9) fL Plt Count (163-337) K/mm3 MPV (9.4-12.3) fl Neut % (Auto) (34.0-67.9) % Lymph % (Auto) (21.8-53.1) % Bailey % (Auto) (5.3-12.2) % Eos % (Auto) (0.8-7.0) Baso % (Auto) (0.1-1.2) % Neut # (Auto) (1.78-5.38) K/mm3 Lymph # (Auto) (1.32-3.57) K/mm3 Bailey # (Auto) (0.30-0.82) K/mm3 Eos # (Auto) (0.04-0.54) K/mm3 Baso # (Auto) (0.01-0.08) K/mm3 Manual Slide Review PT (9.5-12.1) SECONDS INR Sodium (136-145) mEq/L Potassium (3.5-5.1) mEq/L Chloride (98-107) mEq/L Carbon Dioxide (21-32) mEq/L Anion Gap (5-15) BUN (7-18) mg/dL Creatinine (0.7-1.3) mg/dL Est Cr Clr Drug Dosing mL/min Estimated GFR (MDRD) (>60) mL/min BUN/Creatinine Ratio (14-18) Glucose (83-115) mg/dL POC Glucose 160 H 142 H (83-110) mg/dL Calcium (8.5-10.1) mg/dL Magnesium (1.8-2.4) mg/dl Total Bilirubin (0.2-1.0) mg/dL AST (15-37) U/L ALT (16-63) U/L Alkaline Phosphatase (46-116) U/L Total Protein (6.4-8.2) g/dl Albumin (3.4-5.0) g/dl Globulin gm/dL Albumin/Globulin Ratio (1-2) Adenovirus (PCR) Not detected (Not Detected) B. pertussis DNA (PCR) Not detected (Not Detected) B.parapertussis DNA PCR Not detected (Not Detected) C. pneumoniae DNA (PCR) Not detected (Not Detected) Coronavirus (PCR) Not detected (Not Detected) Human Metapneumovir PCR Not detected (Not Detected) Influenza A (RT-PCR) Not detected (Not Detected) Influenza B (RT-PCR) Not detected (Not Detected) M. pneumoniae (PCR) Not detected (Not Detected) Parainfluen 1,2,3,4 PCR Not detected (Not Detected) RSV (PCR) Not detected (Not Detected) Entero/Rhino (PCR) Not detected (Not Detected) 08/07/18 08/07/18 08/08/18 Range/Units 16:52 21:23 05:44 WBC (4.23-9.07) K/mm3 RBC (4.63-6.08) M/mm3 Hgb (13.7-17.5) gm/L Hct (40.1-51.0) % MCV (79.0-92.2) fl MCH (25.7-32.2) pg MCHC (32.2-35.5) g/dl RDW Std Deviation (35.1-43.9) fL Plt Count (163-337) K/mm3 MPV (9.4-12.3) fl Neut % (Auto) (34.0-67.9) % Lymph % (Auto) (21.8-53.1) % Bailey % (Auto) (5.3-12.2) % Eos % (Auto) (0.8-7.0) Baso % (Auto) (0.1-1.2) % Neut # (Auto) (1.78-5.38) K/mm3 Lymph # (Auto) (1.32-3.57) K/mm3 Bailey # (Auto) (0.30-0.82) K/mm3 Eos # (Auto) (0.04-0.54) K/mm3 Baso # (Auto) (0.01-0.08) K/mm3 Manual Slide Review PT 18.6 H (9.5-12.1) SECONDS INR 1.72 Sodium (136-145) mEq/L Potassium (3.5-5.1) mEq/L Chloride (98-107) mEq/L Carbon Dioxide (21-32) mEq/L Anion Gap (5-15) BUN (7-18) mg/dL Creatinine (0.7-1.3) mg/dL Est Cr Clr Drug Dosing mL/min Estimated GFR (MDRD) (>60) mL/min BUN/Creatinine Ratio (14-18) Glucose (83-115) mg/dL POC Glucose 131 H 143 H (83-110) mg/dL Calcium (8.5-10.1) mg/dL Magnesium (1.8-2.4) mg/dl Total Bilirubin (0.2-1.0) mg/dL AST (15-37) U/L ALT (16-63) U/L Alkaline Phosphatase (46-116) U/L Total Protein (6.4-8.2) g/dl Albumin (3.4-5.0) g/dl Globulin gm/dL Albumin/Globulin Ratio (1-2) Adenovirus (PCR) (Not Detected) B. pertussis DNA (PCR) (Not Detected) B.parapertussis DNA PCR (Not Detected) C. pneumoniae DNA (PCR) (Not Detected) Coronavirus (PCR) (Not Detected) Human Metapneumovir PCR (Not Detected) Influenza A (RT-PCR) (Not Detected) Influenza B (RT-PCR) (Not Detected) M. pneumoniae (PCR) (Not Detected) Parainfluen 1,2,3,4 PCR (Not Detected) RSV (PCR) (Not Detected) Entero/Rhino (PCR) (Not Detected) 08/08/18 08/08/18 08/08/18 Range/Units 05:44 05:44 06:56 WBC 11.43 H (4.23-9.07) K/mm3 RBC 4.44 L (4.63-6.08) M/mm3 Hgb 12.9 L (13.7-17.5) gm/L Hct 38.9 L (40.1-51.0) % MCV 87.6 (79.0-92.2) fl MCH 29.1 (25.7-32.2) pg MCHC 33.2 (32.2-35.5) g/dl RDW Std Deviation 42.0 (35.1-43.9) fL Plt Count 228 (163-337) K/mm3 MPV 10.7 (9.4-12.3) fl Neut % (Auto) 62.2 (34.0-67.9) % Lymph % (Auto) 20.0 L (21.8-53.1) % Bailey % (Auto) 16.1 H (5.3-12.2) % Eos % (Auto) 1.2 (0.8-7.0) Baso % (Auto) 0.2 (0.1-1.2) % Neut # (Auto) 7.11 H (1.78-5.38) K/mm3 Lymph # (Auto) 2.29 (1.32-3.57) K/mm3 Bailey # (Auto) 1.84 H (0.30-0.82) K/mm3 Eos # (Auto) 0.14 (0.04-0.54) K/mm3 Baso # (Auto) 0.02 (0.01-0.08) K/mm3 Manual Slide Review Abnormal smear PT (9.5-12.1) SECONDS INR Sodium 137 (136-145) mEq/L Potassium 3.5 (3.5-5.1) mEq/L Chloride 101 (98-107) mEq/L Carbon Dioxide 26 (21-32) mEq/L Anion Gap 13.5 (5-15) BUN 11 (7-18) mg/dL Creatinine 0.9 (0.7-1.3) mg/dL Est Cr Clr Drug Dosing 75.44 mL/min Estimated GFR (MDRD) > 60 (>60) mL/min BUN/Creatinine Ratio 12.2 L (14-18) Glucose 149 H (83-115) mg/dL POC Glucose 157 H (83-110) mg/dL Calcium 9.1 (8.5-10.1) mg/dL Magnesium 2.0 (1.8-2.4) mg/dl Total Bilirubin 0.6 (0.2-1.0) mg/dL AST 15 (15-37) U/L ALT 20 (16-63) U/L Alkaline Phosphatase 54 (46-116) U/L Total Protein 7.5 (6.4-8.2) g/dl Albumin 2.5 L (3.4-5.0) g/dl Globulin 5.0 gm/dL Albumin/Globulin Ratio 0.5 L (1-2) Adenovirus (PCR) (Not Detected) B. pertussis DNA (PCR) (Not Detected) B.parapertussis DNA PCR (Not Detected) C. pneumoniae DNA (PCR) (Not Detected) Coronavirus (PCR) (Not Detected) Human Metapneumovir PCR (Not Detected) Influenza A (RT-PCR) (Not Detected) Influenza B (RT-PCR) (Not Detected) M. pneumoniae (PCR) (Not Detected) Parainfluen 1,2,3,4 PCR (Not Detected) RSV (PCR) (Not Detected) Entero/Rhino (PCR) (Not Detected) [facility] Results - Last 24 hrs: Microbiology 08/04/18 15:54 Aerobic Blood Culture - Preliminary Blood - Venous - Lab Draw NO GROWTH AFTER 3 DAYS Anaerobic Blood Culture - Preliminary NO GROWTH AFTER 3 DAYS 08/04/18 15:43 Aerobic Blood Culture - Preliminary Blood - Venous NO GROWTH AFTER 3 DAYS Anaerobic Blood Culture - Preliminary NO GROWTH AFTER 3 DAYS Med Orders - Current: Current Medications Acetaminophen (Tylenol) 650 mg PO Q4H PRN PRN Reason: Pain (Mild 1-3)/fever Last Admin: 08/07/18 21:40 Dose: 650 mg Albuterol (Proventil Neb Soln) 2.5 mg NEB Q2H PRN PRN Reason: Shortness Of Breath/wheezing Albuterol/Ipratropium (Duoneb 3.0-0.5 Mg/3 Ml) 3 ml NEB Q4H PRN PRN Reason: Shortness Of Breath/wheezing Amlodipine Besylate (Norvasc) 10 mg PO DAILY [facility] Last Admin: 08/08/18 08:52 Dose: 10 mg Azithromycin (Zithromax) 250 mg PO 1600 [facility] Last Admin: 08/07/18 16:00 Dose: 250 mg Bisacodyl (Dulcolax) 5 mg PO DAILY PRN PRN Reason: Constipation Dextrose/Water (Dextrose 50% In Water) 50 ml IV ASDIRECTED PRN PRN Reason: Hypoglycemia Ceftriaxone Sodium 2 gm/ (Sodium Chloride) 100 mls @ 200 mls/hr IV Q24H [facility] Last Admin: 08/07/18 16:00 Dose: 200 mls/hr Insulin Glargine (Lantus) 10 unit SUBCUT DAILY [facility] Last Admin: 08/08/18 08:50 Dose: 10 units Insulin Human Lispro (Humalog) 0 unit SUBCUT QIDACANDBED [facility]; Protocol Last Admin: 08/08/18 08:49 Dose: 1 unit Magnesium Oxide (Magnesium Oxide) 400 mg PO BID [facility] Last Admin: 08/08/18 08:52 Dose: 400 mg Ondansetron HCl (Zofran Odt) 4 mg PO Q4H PRN PRN Reason: nausea, able to take PO Ondansetron HCl (Zofran) 4 mg IV Q4H PRN PRN Reason: Nausea/Vomiting Rosuvastatin Calcium (Crestor) 10 mg PO BEDTIME [facility] Last Admin: 08/07/18 21:24 Dose: 10 mg Tamsulosin HCl (Flomax) 0.4 mg PO DAILY [facility] Last Admin: 08/08/18 08:52 Dose: 0.4 mg Warfarin Sodium (Pharmacy To Dose - Warfarin) 0 dose PO ASDIRECTED PRN PRN Reason: RX TO DOSE WARFARIN Warfarin Sodium (Coumadin) 5 mg PO QPM [facility] Stop: 08/08/18 18:01 Discontinued Medications Dextrose/Water (Dextrose 50% In Water) 50 ml IVPUSH ASDIRECTED PRN PRN Reason: Hypoglycemia Magnesium Sulfate 2 gm/ Premix 50 mls @ 50 mls/hr IV ONETIME ONE Stop: 08/04/18 17:32 Last Admin: 08/04/18 17:18 Dose: 50 mls/hr Azithromycin 500 mg/ Sodium (Chloride) 250 mls @ 250 mls/hr IV ONETIME ONE Stop: 08/04/18 17:32 Last Admin: 08/04/18 17:53 Dose: 250 mls/hr Ceftriaxone Sodium 2 gm/ (Sodium Chloride) 100 mls @ 200 mls/hr IV ONETIME STA Stop: 08/04/18 17:40 Last Admin: 08/04/18 17:19 Dose: 200 mls/hr Sodium Chloride (Normal Saline) 1,000 mls @ 999 mls/hr IV ONETIME ONE Stop: 08/04/18 18:21 Last Admin: 08/04/18 17:30 Dose: 999 mls/hr Norepinephrine Bitartrate 4 mg (/ Dextrose/Water) 250 mls @ 37.5 mls/hr IV TITRATE [facility]; Protocol Phenylephrine HCl 10 mg/ (Sodium Chloride) 100 mls @ 60 mls/hr IV TITRATE [facility]; Protocol Sodium Chloride (Normal Saline) 1,000 mls @ 500 mls/hr IV ONETIME ONE Stop: 08/04/18 20:58 Last Infusion: 08/04/18 20:39 Dose: 50 mls/hr Azithromycin 250 mg/ Sodium (Chloride) 250 mls @ 250 mls/hr IV Q24H [facility] Last Admin: 08/06/18 16:27 Dose: 250 mls/hr Potassium Chloride 10 meq/ (Premix) 100 mls @ 100 mls/hr IV Q1H [facility] Stop: 08/05/18 01:14 Last Admin: 08/05/18 01:02 Dose: 100 mls/hr Sodium Chloride (Normal Saline) 1,000 mls @ 50 mls/hr IV ASDIRECTED [facility] Last Admin: 08/05/18 11:10 Dose: 50 mls/hr Potassium Chloride 10 meq/ (Premix) 100 mls @ 100 mls/hr IV Q1H [facility] Stop: 08/05/18 12:59 Last Admin: 08/05/18 13:24 Dose: 100 mls/hr Magnesium Sulfate 2 gm/ Premix 50 mls @ 25 mls/hr IV ONETIME ONE Stop: 08/07/18 12:59 Last Admin: 08/07/18 11:27 Dose: 25 mls/hr Metoprolol Tartrate (Lopressor) 5 mg IVPUSH ONETIME ONE Stop: 08/04/18 15:19 Last Admin: 08/04/18 15:20 Dose: 5 mg Metoprolol Tartrate (Lopressor) Confirm Administered Dose 5 mg .ROUTE .STK-MED ONE Stop: 08/04/18 15:20 Last Admin: 08/04/18 15:33 Dose: Not Given Rosuvastatin Calcium (Crestor) 20 mg PO BEDTIME [facility] Last Admin: 08/06/18 20:39 Dose: 20 mg Warfarin Sodium (Coumadin) 2.5 mg PO [id number] [facility] Last Admin: 08/06/18 17:21 Dose: 2.5 mg Warfarin Sodium (Coumadin) 5 mg PO Th@1800 [facility] Warfarin Sodium (Coumadin) 5 mg PO QPM [facility] Stop: 08/07/18 18:01 Last Admin: 08/07/18 17:09 Dose: 5 mg - Exam Quality Assessment: Denies: Supplemental Oxygen General: Reports: Alert, Oriented HEENT: Reports: Pupils Equal Neck: Reports: Supple Lungs: Reports: Clear to Auscultation, Normal Respiratory Effort Cardiovascular: Reports: Regular Rate, Regular Rhythm GI/Abdominal Exam: Normal Bowel Sounds, Soft, Non-Tender, No Distention Extremities: Normal Inspection, Pedal Edema Neurological: Reports: No New Focal Deficit Psy/Mental Status: Reports: Alert, Normal Affect, Normal Mood
[2018-08-08] MEDS: Azithromycin 250 MG Tab PO SCH (11:20)
[2018-08-08] MEDS ORDERED: Warfarin 5 MG Tab PO SCH (18:00)
[2018-08-10] MEDS ORDERED: Warfarin 5 MG Tab PO SCH (18:00)
== END 2018-08-08 11:40 | disposition home or self-care (01) | DRG 871 ==
LOC: JD.ED 15:09 → JD.ICU 19:58 → JD.MS 08-07 02:32
PROVIDERS: ADMIT Family Medicine; ATTEND Family Medicine
PROC: 5A09457 Assistance with Respiratory Ventilation, 24-96 Consecutive Hours, Continuous Positive Airway Pressure (ICD-10-PCS; principal; 2018-08-04)
DX: A41.9 Sepsis, unspecified organism (principal); J18.9 Pneumonia, unspecified organism; J96.91 Respiratory failure, unspecified with hypoxia; J18.1 Lobar pneumonia, unspecified organism; I47.2 Ventricular tachycardia; E87.3 Alkalosis; J44.0 Chronic obstructive pulmonary disease with (acute) lower respiratory infection; E11.65 Type 2 diabetes mellitus with hyperglycemia; E83.42 Hypomagnesemia; N40.1 Benign prostatic hyperplasia with lower urinary tract symptoms; R33.8 Other retention of urine; I10 Essential (primary) hypertension; E78.5 Hyperlipidemia, unspecified; M19.90 Unspecified osteoarthritis, unspecified site; G47.33 Obstructive sleep apnea (adult) (pediatric); K21.9 Gastro-esophageal reflux disease without esophagitis; K52.9 Noninfective gastroenteritis and colitis, unspecified; E87.70 Fluid overload, unspecified; R09.02 Hypoxemia; R79.1 Abnormal coagulation profile; R41.82 Altered mental status, unspecified; R53.83 Other fatigue; R53.1 Weakness; R41.0 Disorientation, unspecified; D72.829 Elevated white blood cell count, unspecified; R26.2 Difficulty in walking, not elsewhere classified; R31.9 Hematuria, unspecified; Z86.73 Personal history of transient ischemic attack (TIA), and cerebral infarction without residual deficits; Z91.030 Bee allergy status; Z79.01 Long term (current) use of anticoagulants; Z79.84 Long term (current) use of oral hypoglycemic drugs; Z79.899 Other long term (current) drug therapy; Z87.891 Personal history of nicotine dependence
CPT/HCPCS: 36415; 36600; 51702; 51798; 71045; 71045-26; 73630-26-LT; 73630-LT; 80053; 80061; 81001; 82803; 82962; 83036; 83605; 83735; 83880; 84100; 84484; 85007; 85025; 85027; 85379; 85610; 85730; 86140; 87040; 87486; 87581; 87632; 87798; 87804; 87899; 93005; 93010; 94660; 94760; 96361; 96365; 96367; 96368; 96375; 97110-GP; 97116-GP; 97162-GP; 97165-GO; 97530-GO; 99283; 99285-25; A9270-GY; J0456; J0696; J1815-GY; J3475; J3480; J3490; J7030; J7040; J7050